=== PATIENT | female | born 1955 | race Hispanic/Latino ===

== ENCOUNTER 2021-12-16 13:33 | Inpatient (IN) | payer MEDICARE ==
--- NOTE | 2021-12-16 14:13 | Emergency Department Report ---
ED Fall HPI - General Chief Complaint: Extremity Injury, Lower Stated Complaint: HIP PAIN/RT/ Time Seen by Provider: 12/16/21 13:52 Source: EMS, old records reviewed (Patient summary from [facility] reviewed) Mode of arrival: Stretcher Limitations: Other - History of Present Illness Initial Comments: 66-year-old female with Lewy body dementia and hypertension presents to the hospital from [facility] assisted living for a witnessed fall. Due to patient's underlying dementia history of present illness obtained from triage nurse who spoke to EMS. EMS reports that fall was witnessed by staff. No head injury or LOC reported. Patient has had persistent right hip pain since fall. - Related Data Allergies Allergy/AdvReac Type Severity Reaction Status Date / Time Penicillins Allergy Unknown Verified 12/16/21 13:55 Sulfa (Sulfonamide Allergy Unknown Verified 12/16/21 13:55 Antibiotics) ED Review of Systems ROS: Stated complaint: HIP PAIN/RT/ Other details as noted in HPI Comment: Unobtainable due to pts medical conditions (Dementia) ED Past Medical Hx - Past Medical History Previous Medical History?: Yes Hx Hypertension: Yes Hx Dementia: Yes (Lewy body) - Surgical History Past Surgical History?: Yes Hx Cholecystectomy: Yes Hx Breast Surgery: Yes Additional Surgical History: Hysterectomy, tonsillectomy ED Physical Exam - General Limitations: Altered Mental Status - Other Other exam information: General: No acute distress Head: Atraumatic Eyes: normal appearance ENT: Moist mucous membranes Neck: Normal appearance, no midline tenderness Chest: Clear to auscultation bilaterally CV: Regular rate and rhythm Abdomen: Soft, normal bowel sounds, nontender, nondistended, no rebound or guarding Back: Normal inspection Extremity: Right hip pain, externally rotated, 2+ DP pulse Neuro: Alert oriented x0, unable to answer direct questions, speaking but not making sense. Equal handgrip, 5/5 left foot dorsiflexion Psych: Appropriate behavior Skin: No rash ED Course Vital Signs 12/16/21 13:40 Temperature 98.1 F Pulse Rate 64 Respiratory 16 Rate Blood Pressure 140/90 [Left] O2 Sat by Pulse 96 Oximetry ED Medical Decision Making - Lab Data Result diagrams: 12/16/21 14:50 12/16/21 14:50 Lab Results 12/16/21 12/16/21 12/16/21 Range/Units 14:50 14:50 14:50 WBC 14.4 H (4.5-11.0) K/mm3 RBC 4.31 (3.65-5.03) M/mm3 Hgb 13.1 (10.1-14.3) gm/dl Hct 40.3 (30.3-42.9) % MCV 94 (79-97) fl MCH 31 (28-32) pg MCHC 33 (30-34) % RDW 13.9 (13.2-15.2) % Plt Count 187 (140-440) K/mm3 Lymph % (Auto) 4.4 L (13.4-35.0) % [place] % (Auto) 8.8 H (0.0-7.3) % Eos % (Auto) 0.1 (0.0-4.3) % Baso % (Auto) 0.2 (0.0-1.8) % Lymph # (Auto) 0.6 L (1.2-5.4) K/mm3 [place] # (Auto) 1.3 H (0.0-0.8) K/mm3 Eos # (Auto) 0.0 (0.0-0.4) K/mm3 Baso # (Auto) 0.0 (0.0-0.1) K/mm3 Seg Neutrophils % 86.5 H (40.0-70.0) % Seg Neutrophils # 12.4 H (1.8-7.7) K/mm3 PT 15.0 H (12.2-14.9) Sec. INR 1.06 (0.87-1.13) APTT 27.8 (24.2-36.6) Sec. Sodium 142 (137-145) mmol/L Potassium 4.2 (3.6-5.0) mmol/L Chloride 105.3 (98-107) mmol/L Carbon Dioxide 23 (22-30) mmol/L Anion Gap 18 mmol/L BUN 23 H (7-17) mg/dL Creatinine 0.8 (0.6-1.2) mg/dL Estimated GFR > 60 ml/min BUN/Creatinine Ratio 29 % Glucose 144 H (65-100) mg/dL Calcium 9.9 (8.4-10.2) mg/dL Blood Type Antibody Screen 12/16/21 Range/Units 15:00 WBC (4.5-11.0) K/mm3 RBC (3.65-5.03) M/mm3 Hgb (10.1-14.3) gm/dl Hct (30.3-42.9) % MCV (79-97) fl MCH (28-32) pg MCHC (30-34) % RDW (13.2-15.2) % Plt Count (140-440) K/mm3 Lymph % (Auto) (13.4-35.0) % [place] % (Auto) (0.0-7.3) % Eos % (Auto) (0.0-4.3) % Baso % (Auto) (0.0-1.8) % Lymph # (Auto) (1.2-5.4) K/mm3 [place] # (Auto) (0.0-0.8) K/mm3 Eos # (Auto) (0.0-0.4) K/mm3 Baso # (Auto) (0.0-0.1) K/mm3 Seg Neutrophils % (40.0-70.0) % Seg Neutrophils # (1.8-7.7) K/mm3 PT (12.2-14.9) Sec. INR (0.87-1.13) APTT (24.2-36.6) Sec. Sodium (137-145) mmol/L Potassium (3.6-5.0) mmol/L Chloride (98-107) mmol/L Carbon Dioxide (22-30) mmol/L Anion Gap mmol/L BUN (7-17) mg/dL Creatinine (0.6-1.2) mg/dL Estimated GFR ml/min BUN/Creatinine Ratio % Glucose (65-100) mg/dL Calcium (8.4-10.2) mg/dL Blood Type O POSITIVE Antibody Screen Negative - Radiology Data Radiology results: report reviewed RIGHT HIP 2 VIEW(S) INDICATION / CLINICAL INFORMATION: fall, right hip pain, external rotation COMPARISON: None available. FINDINGS: BONES / JOINT(S): There is an acute slightly comminuted intertrochanteric fracture of the right proximal femur with moderate displacement. No significant arthritis. SOFT TISSUES: No significant abnormality. ADDITIONAL FINDINGS: None. - Medical Decision Making 66-year-old with a right hip fracture status post fall. Case discussed with orthopedics and hospitalist to admit for surgical repair Critical Care Time: No Critical care attestation.: If time is entered above; I have spent that time in minutes in the direct care of this critically ill patient, excluding procedure time. ED Disposition Clinical Impression: Closed right hip fracture, Fall, Dementia Disposition: ADMITTED INPATIENT Is pt being admited?: Yes Condition: Stable Time of Disposition: 15:00
--- NOTE | 2021-12-16 14:49 | XRay Report ---
RIGHT HIP 2 VIEW(S) INDICATION / CLINICAL INFORMATION: fall, right hip pain, external rotation COMPARISON: None available. FINDINGS: BONES / JOINT(S): There is an acute slightly comminuted intertrochanteric fracture of the right proxi mal femur with moderate displacement. No significant arthritis. SOFT TISSUES: No significant abnormality. ADDITIONAL FINDINGS: None. Signer Name: Aravind Montez DO Signed: 12/16/2021 2:45 PM Workstation Name: [id number]
--- NOTE | 2021-12-16 15:09 | Consultation ---
History of Present Illness - HPI Consult date: 12/16/21 Consult reason: joint pain, fracture History of present illness: 66-year-old female with Lewy body dementia and hypertension presents to the hospital from [facility] for a witnessed fall. Due to patient's underlying dementia history of present illness obtained from triage nurse who spoke to EMS. EMS reports that fall was witnessed by staff. No head injury or LOC reported. Patient has had persistent right hip pain since fall. Seen in the ED where plain x-rays reveal a displaced right intertrochanteric hip fracture, patient reportedly ambulatory prior to fall... Medications and Allergies Allergies Allergy/AdvReac Type Severity Reaction Status Date / Time Penicillins Allergy Unknown Verified 12/16/21 13:55 Sulfa (Sulfonamide Allergy Unknown Verified 12/16/21 13:55 Antibiotics) Physical Examination - Physical exam Narrative exam: Right LE - + shortening with external rotation, moderate swelling proximal thigh, tender on palpation, painful PROM noted, distal n/v intact... Eyes: PERRL ENT: Positive: clear oral mucosa Respiratory effort: normal Respiratory: bilateral: CTA Rhythm: regular Heart Sounds: Positive: S1 & S2 General gastrointestinal: Positive: soft, non-tender, non-distended, normal bowel sounds Integumentary: clear, warm, dry Neurologic: Positive: CNII-XII intact, moves all extremities, gait normal. Negative: focal deficits Assessment and Plan Right intertrochanteric hip fracture in ambulatory demented patient recommend IM nailing right hip....
[2021-12-16 15:23] LABS: Basophils % (Auto) 0.2 % (0.0-1.8); Eosinophils % (Auto) 0.1 % (0.0-4.3); Hematocrit 40.3 % (30.3-42.9); Hemoglobin 13.1 gm/dl (10.1-14.3); Lymphocytes # (Auto) 0.6 K/mm3 (1.2-5.4); Lymphocytes % (Auto) 4.4 % (13.4-35.0); Mean Corpuscular HGB Conc 33 % (30-34); Mean Corpuscular Volume 94 fl (79-97); Monocytes # (Auto) 1.3 K/mm3 (0.0-0.8); Monocytes % (Auto) 8.8 % (0.0-7.3); Platelet Count 187 K/mm3 (140-440); Red Blood Count 4.31 M/mm3 (3.65-5.03); Red Cell Distribution Width 13.9 % (13.2-15.2)
[2021-12-16 15:35] LABS: BUN/Creatinine Ratio 29; Blood Urea Nitrogen 23 mg/dL (7-17); Calcium 9.9 mg/dL (8.4-10.2); Hemolysis Index 19
[2021-12-16 15:37] LABS: INR 1.06 (0.87-1.13); Partial Thromboplastin Time 27.8 Sec. (24.2-36.6)
[2021-12-16] MEDS ORDERED: ACETAMINOPHEN 325 MG TAB PO PRN (18:03)
[2021-12-16] MEDS ORDERED: METOCLOPRAMIDE 10 MG/2 ML INJ IV PRN (18:03)
[2021-12-16] MEDS ORDERED: MORPHINE 2 MG/1 ML INJ IV PRN (18:03)
[2021-12-16] MEDS ORDERED: ONDANSETRON 4 MG/2 ML INJ IV PRN (18:03)
--- NOTE | 2021-12-16 18:03 | History and Physical Report ---
History of Present Illness Date of examination: 12/16/21 Date of admission: December 21, 2021 Chief complaint: Right hip pain-s/p fall History of present illness: 66-year-old female with Lewy body dementia and hypertension presents to the hospital from [facility] for a witnessed fall. Patient has right hip pain and decreased range of motion. Due to patient's underlying dementia history of present illness obtained from triage nurse who spoke to EMS. EMS reports that fall was witnessed by staff. No head injury or LOC reported. Patient has had persistent right hip pain since fall. ED course: Patient has right hip comminuted intertrochanteric fracture for which she will be getting surgery tomorrow morning - Past Medical History --Previous Medical History?: Yes --Hypertension: Yes --Dementia: Yes (Lewy body) - Surgical History --Past Surgical History?: Yes --Cholecystectomy: Yes --Breast Surgery: Yes --Additional Surgical History: Hysterectomy, tonsillectomy - Family history --unknown -social history --does not smoke, lives in [facility] Review of Systems ROS: Stated complaint: HIP PAIN/RT/ Other details as noted in HPI Comment: Unobtainable due to pts medical conditions (Dementia) Medications and Allergies Allergies Allergy/AdvReac Type Severity Reaction Status Date / Time Penicillins Allergy Unknown Verified 12/16/21 13:55 Sulfa (Sulfonamide Allergy Unknown Verified 12/16/21 13:55 Antibiotics) Exam - Constitutional Vitals: Temp Pulse Resp BP Pulse Ox 98.1 F 64 16 140/90 96 12/16/21 13:40 12/16/21 13:40 12/16/21 13:40 12/16/21 13:40 12/16/21 13:40 General appearance: Present: no acute distress, well-nourished - EENT Eyes: Present: PERRL ENT: hearing intact, clear oral mucosa - Neck Neck: Present: supple, normal ROM - Respiratory Respiratory effort: normal Respiratory: bilateral: CTA - Cardiovascular Heart rate: 78 Rhythm: regular Heart Sounds: Present: S1 & S2. Absent: rub, click - Extremities Extremities: no ischemia, pulses intact, pulses symmetrical, No edema, abnormal (Decreased range of motion of the right hip) Extremity abnormal: other (Same as above) Peripheral Pulses: within normal limits - Abdominal General gastrointestinal: Present: soft, non-tender, non-distended, normal bowel sounds Female genitourinary: Present: normal - Integumentary Integumentary: Present: clear, warm, dry - Musculoskeletal Musculoskeletal: generalized weakness - Psychiatric Psychiatric: other (Severe dementia) - Neurologic Neurologic: CNII-XII intact, moves all extremities, other (Severe dementia) - Allied Health Allied health notes reviewed: nursing, case management Results - Labs CBC & Chem 7: 12/16/21 14:50 12/16/21 14:50 Labs: Laboratory Last Values WBC 14.4 K/mm3 (4.5-11.0) H 12/16/21 14:50 RBC 4.31 M/mm3 (3.65-5.03) 12/16/21 14:50 Hgb 13.1 gm/dl (10.1-14.3) 12/16/21 14:50 Hct 40.3 % (30.3-42.9) 12/16/21 14:50 MCV 94 fl (79-97) 12/16/21 14:50 MCH 31 pg (28-32) 12/16/21 14:50 MCHC 33 % (30-34) 12/16/21 14:50 RDW 13.9 % (13.2-15.2) 12/16/21 14:50 Plt Count 187 K/mm3 (140-440) 12/16/21 14:50 Lymph % (Auto) 4.4 % (13.4-35.0) L 12/16/21 14:50 [place] % (Auto) 8.8 % (0.0-7.3) H 12/16/21 14:50 Eos % (Auto) 0.1 % (0.0-4.3) 12/16/21 14:50 Baso % (Auto) 0.2 % (0.0-1.8) 12/16/21 14:50 Lymph # (Auto) 0.6 K/mm3 (1.2-5.4) L 12/16/21 14:50 [place] # (Auto) 1.3 K/mm3 (0.0-0.8) H 12/16/21 14:50 Eos # (Auto) 0.0 K/mm3 (0.0-0.4) 12/16/21 14:50 Baso # (Auto) 0.0 K/mm3 (0.0-0.1) 12/16/21 14:50 Seg Neutrophils % 86.5 % (40.0-70.0) H 12/16/21 14:50 Seg Neutrophils # 12.4 K/mm3 (1.8-7.7) H 12/16/21 14:50 PT 15.0 Sec. (12.2-14.9) H 12/16/21 14:50 INR 1.06 (0.87-1.13) 12/16/21 14:50 APTT 27.8 Sec. (24.2-36.6) 12/16/21 14:50 Sodium 142 mmol/L (137-145) 12/16/21 14:50 Potassium 4.2 mmol/L (3.6-5.0) 12/16/21 14:50 Chloride 105.3 mmol/L (98-107) 12/16/21 14:50 Carbon Dioxide 23 mmol/L (22-30) 12/16/21 14:50 Anion Gap 18 mmol/L 12/16/21 14:50 BUN 23 mg/dL (7-17) H 12/16/21 14:50 Creatinine 0.8 mg/dL (0.6-1.2) 12/16/21 14:50 Estimated GFR > 60 ml/min 12/16/21 14:50 BUN/Creatinine Ratio 29 % 12/16/21 14:50 Glucose 144 mg/dL (65-100) H 12/16/21 14:50 Calcium 9.9 mg/dL (8.4-10.2) 12/16/21 14:50 Blood Type O POSITIVE 12/16/21 15:00 Antibody Screen Negative 12/16/21 15:00 Short CBC 12/16/21 Range/Units 14:50 WBC 14.4 H (4.5-11.0) K/mm3 Hgb 13.1 (10.1-14.3) gm/dl Hct 40.3 (30.3-42.9) % Plt Count 187 (140-440) K/mm3 BMP 12/16/21 14:50 Sodium 142 Potassium 4.2 Chloride 105.3 Carbon Dioxide 23 BUN 23 H Creatinine 0.8 Glucose 144 H Calcium 9.9 - Imaging and Cardiology Imaging and Cardiology: Hip x-ray right Acute slightly comminuted intertrochanteric fracture of the right proximal femur with moderate displacement. No significant arthritis. Assessment and Plan Advance Directives: Yes (Full code) VTE prophylaxis?: Chemical Plan of care discussed with patient/family: Yes - Patient Problems (1) Closed right hip fracture Current Visit: Yes Status: Acute Qualifiers: Encounter type: initial encounter Qualified Code(s): S72.001A - Fracture of unspecified part of neck of right femur, initial encounter for closed fracture Plan to address problem: Dr. Valle consulted Discussed with Dr. Valle Patient going for surgery tomorrow morning for ORIF (2) Dementia Current Visit: Yes Status: Chronic Qualifiers: Dementia type: Alzheimer's Dementia behavioral disturbance: without behavioral disturbance Plan to address problem: Supportive care (3) Hypertension Current Visit: Yes Status: Chronic Qualifiers: Hypertension type: primary hypertension Qualified Code(s): I10 - Essential (primary) hypertension Plan to address problem: Continue antihypertensive Patient medically cleared for surgery (4) DVT prophylaxis Current Visit: Yes Status: Acute Plan to address problem: Patient on SCDs and will need anticoagulation postop for 5 weeks (5) Advance care planning Current Visit: Yes Status: Acute Plan to address problem: Could not be done because of the patient's severe dementia and no family member being available
[2021-12-17] MEDS: SODIUM CHLORIDE 0.9% 1000 ML 1,000 ML IV SCH (05:40)
--- NOTE | 2021-12-17 11:01 | Progress Note ---
Assessment and Plan Assessment and plan: -- Closed right intertrochanteric hip fracture; Current Visit: Yes Status: Acute Status post fall. Continue fall precautions Orthopedic surgeon Dr. Valle evaluated the patient Planning IM nailing of right hip --History of fall; Current Visit: Yes Status: Acute Fall precautions, stabilization of fracture and hip IM nailing, physical therapy occupational therapy and rehabilitation -- dementia; Current Visit: Yes Status: Chronic Supportive care --Hypertension Current Visit: Yes Status: Chronic Continue antihypertensive Patient medically cleared for surgery --DVT prophylaxis Current Visit: Yes Status: Acute Patient on SCDs and will need anticoagulation postop for 5 weeks --Advance care planning Current Visit: Yes Status: Acute Could not be done because of the patient's severe dementia and no family member being available Closely monitor the patient and adjust management as needed Follow orthopedic recommendations. Plan of care reviewed with the nurse I called patient's son who is next of kin Mr. Bill Grey at [phone], no one picked up the phone, could not leave a message as voicemail was not set up. We will try to reach the family again tomorrow I informed the nurse. History Interval history: I have seen and examined the patient at the bedside Patient's chart and medications reviewed 66-year-old female patient with history of fall and right hip injury Evaluated by orthopedic, planning IM nailing and stabilization Patient is confused and in mild distress Vital signs noted Hospitalist Physical - Constitutional Vitals: Temp Pulse Resp BP Pulse Ox 98.1 F 63 20 150/60 98 12/17/21 06:40 12/17/21 06:40 12/17/21 06:40 12/17/21 06:40 12/17/21 06:40 General appearance: Present: no acute distress, well-nourished - EENT Eyes: Present: PERRL, EOM intact - Neck Neck: Present: supple, normal ROM - Respiratory Respiratory effort: normal Respiratory: bilateral: diminished, negative: rales, rhonchi, wheezing - Cardiovascular Rhythm: regular Heart Sounds: Present: S1 & S2 - Extremities Extremities: no ischemia, No edema - Abdominal General gastrointestinal: soft, non-tender, non-distended, normal bowel sounds - Integumentary Integumentary: Present: clear, warm - Psychiatric Psychiatric: other (Confused and delirious) - Neurologic Neurologic: moves all extremities Results - Labs CBC & Chem 7: 12/16/21 14:50 12/16/21 14:50 Labs: Laboratory Last Values WBC 14.4 K/mm3 (4.5-11.0) H 12/16/21 14:50 RBC 4.31 M/mm3 (3.65-5.03) 12/16/21 14:50 Hgb 13.1 gm/dl (10.1-14.3) 12/16/21 14:50 Hct 40.3 % (30.3-42.9) 12/16/21 14:50 MCV 94 fl (79-97) 12/16/21 14:50 MCH 31 pg (28-32) 12/16/21 14:50 MCHC 33 % (30-34) 12/16/21 14:50 RDW 13.9 % (13.2-15.2) 12/16/21 14:50 Plt Count 187 K/mm3 (140-440) 12/16/21 14:50 Lymph % (Auto) 4.4 % (13.4-35.0) L 12/16/21 14:50 [place] % (Auto) 8.8 % (0.0-7.3) H 12/16/21 14:50 Eos % (Auto) 0.1 % (0.0-4.3) 12/16/21 14:50 Baso % (Auto) 0.2 % (0.0-1.8) 12/16/21 14:50 Lymph # (Auto) 0.6 K/mm3 (1.2-5.4) L 12/16/21 14:50 [place] # (Auto) 1.3 K/mm3 (0.0-0.8) H 12/16/21 14:50 Eos # (Auto) 0.0 K/mm3 (0.0-0.4) 12/16/21 14:50 Baso # (Auto) 0.0 K/mm3 (0.0-0.1) 12/16/21 14:50 Seg Neutrophils % 86.5 % (40.0-70.0) H 12/16/21 14:50 Seg Neutrophils # 12.4 K/mm3 (1.8-7.7) H 12/16/21 14:50 PT 15.0 Sec. (12.2-14.9) H 12/16/21 14:50 INR 1.06 (0.87-1.13) 12/16/21 14:50 APTT 27.8 Sec. (24.2-36.6) 12/16/21 14:50 Sodium 142 mmol/L (137-145) 12/16/21 14:50 Potassium 4.2 mmol/L (3.6-5.0) 12/16/21 14:50 Chloride 105.3 mmol/L (98-107) 12/16/21 14:50 Carbon Dioxide 23 mmol/L (22-30) 12/16/21 14:50 Anion Gap 18 mmol/L 12/16/21 14:50 BUN 23 mg/dL (7-17) H 12/16/21 14:50 Creatinine 0.8 mg/dL (0.6-1.2) 12/16/21 14:50 Estimated GFR > 60 ml/min 12/16/21 14:50 BUN/Creatinine Ratio 29 % 12/16/21 14:50 Glucose 144 mg/dL (65-100) H 12/16/21 14:50 Calcium 9.9 mg/dL (8.4-10.2) 12/16/21 14:50 Blood Type O POSITIVE 12/16/21 15:00 Antibody Screen Negative 12/16/21 15:00 Tripathi/IV: Voiding Method Incontinent Active Medications - Current Medications Current Medications: Generic Name Dose Route Start Last Admin Trade Name Freq PRN Reason Stop Dose Admin Acetaminophen 650 mg 12/16/21 18:03 Acetaminophen 325 Mg Tab PO Q4H PRN Pain MILD(1-3)/Fever >100.5/RODRIGUEZ Sodium Chloride 1,000 mls @ 100 mls/hr 12/16/21 18:15 12/17/21 05:40 Nacl 0.9% 1000 Ml IV 100 mls/hr DIRECT ALAN Administration Metoclopramide HCl 10 mg 12/16/21 18:03 Metoclopramide 10 Mg/2 Ml Inj IV Q6H PRN Nausea And Vomiting Morphine Sulfate 2 mg 12/16/21 18:03 Morphine 2 Mg/1 Ml Inj IV Q4H PRN Pain, Moderate (4-6) Ondansetron HCl 4 mg 12/16/21 18:03 Ondansetron 4 Mg/2 Ml Inj IV Q3H PRN Nausea And Vomiting Sodium Chloride 10 ml 12/16/21 22:00 12/17/21 10:07 Sodium Chloride 0.9% 10 Ml Flush Syringe IV 10 ml BID ALAN Administration Sodium Chloride 10 ml 12/16/21 18:03 Sodium Chloride 0.9% 10 Ml Flush Syringe IV PRN PRN LINE FLUSH
--- NOTE | 2021-12-17 15:32 | Event Note ---
Date: 12/17/21 I called patient's son who is next of kin Mr. Bill Grey at [phone], no one picked up the phone, could not leave a voicemail as voicemail was not set up. We will try to reach the family again tomorrow. Nurse also reports that no family contacted her or the hospital .
[2021-12-18 04:59] LABS: Basophils % (Auto) 0.5 % (0.0-1.8); Eosinophils % (Auto) 0.1 % (0.0-4.3); Hematocrit 39.1 % (30.3-42.9); Hemoglobin 12.9 gm/dl (10.1-14.3); Mean Corpuscular HGB Conc 33 % (30-34); Mean Corpuscular Volume 93 fl (79-97); Monocytes # (Auto) 1.3 K/mm3 (0.0-0.8); Monocytes % (Auto) 15.3 % (0.0-7.3); Platelet Count 178 K/mm3 (140-440); Red Blood Count 4.21 M/mm3 (3.65-5.03); Red Cell Distribution Width 14.1 % (13.2-15.2)
[2021-12-18 05:21] LABS: Blood Urea Nitrogen 16 mg/dL (7-17); Calcium 9.7 mg/dL (8.4-10.2); Hemolysis Index 2
[2021-12-18 05:27] LABS: BUN/Creatinine Ratio 27
--- NOTE | 2021-12-18 10:44 | Electrocardiograph Report ---
[facility] Test Date: 2021-12-17 Test Time: 08:14:49 Pat Name: ASAEL BHATIA Department: Room: A371 1 Gender: F Can Worker: TINA : 1955 Requested By: ERYN GOMEZ Order Number: [id number] Reading MD: Marcy Shetty Measurements Intervals [place] Rate: 63 P: 33 VT: 45 QRS: 64 QRSD: 87 T: 60 QT: 423 QTc: 432 Interpretive Statements Sinus rhythm No previous ECG available for comparison Electronically Signed On 12-18-2021 10:43:40 EDT by Marcy Shetty
--- NOTE | 2021-12-18 11:25 | Progress Note ---
Assessment and Plan Assessment and plan: -- Closed right intertrochanteric hip fracture; Current Visit: Yes Status: Acute Status post fall. Continue fall precautions Orthopedic surgeon Dr. Valle evaluated the patient Planning IM nailing of right hip Management per orthopedics surgeon --History of fall; Current Visit: Yes Status: Acute Fall precautions, stabilization of fracture and hip IM nailing, physical therapy occupational therapy and rehabilitation -- dementia; Current Visit: Yes Status: Chronic Supportive care --Hypertension Current Visit: Yes Status: Chronic Continue antihypertensive Patient medically cleared for surgery --DVT prophylaxis Current Visit: Yes Status: Acute Patient on SCDs and will need anticoagulation postop for 5 weeks --Advance care planning Current Visit: Yes Status: Acute Could not be done because of the patient's severe dementia and no family member being available Closely monitor the patient and adjust management as needed Follow orthopedic recommendations. Plan of care reviewed with the nurse I called patient's son who is next of kin Mr. Bill Grey at [phone], no one picked up the phone, could not leave a message as voicemail was not set up. We will try to reach the family again tomorrow I informed the nurse. 12/18; patient feels slightly better still complains of some pain Orthopedic surgeon evaluated the patient, considering IM nailing History Interval history: I have seen and examined the patient at the bedside Patient's chart and medications reviewed Patient feels slightly better Confused at times Vital signs noted Hospitalist Physical - Constitutional Vitals: Temp Pulse Resp BP Pulse Ox 98.1 F 62 16 137/50 98 12/18/21 04:55 12/18/21 04:55 12/18/21 04:55 12/18/21 04:55 12/18/21 07:45 General appearance: Present: no acute distress, well-nourished - EENT Eyes: Present: PERRL, EOM intact - Neck Neck: Present: supple, normal ROM - Respiratory Respiratory effort: normal Respiratory: bilateral: diminished, negative: rales, rhonchi, wheezing - Cardiovascular Rhythm: regular Heart Sounds: Present: S1 & S2 - Extremities Extremities: no ischemia, No edema - Abdominal General gastrointestinal: soft, non-tender, non-distended, normal bowel sounds - Integumentary Integumentary: Present: clear, warm - Psychiatric Psychiatric: appropriate mood/affect, cooperative - Neurologic Neurologic: CNII-XII intact, moves all extremities Results - Labs CBC & Chem 7: 12/18/21 04:10 12/18/21 04:10 Labs: Laboratory Last Values WBC 8.6 K/mm3 (4.5-11.0) 12/18/21 04:10 RBC 4.21 M/mm3 (3.65-5.03) 12/18/21 04:10 Hgb 12.9 gm/dl (10.1-14.3) 12/18/21 04:10 Hct 39.1 % (30.3-42.9) 12/18/21 04:10 MCV 93 fl (79-97) 12/18/21 04:10 MCH 31 pg (28-32) 12/18/21 04:10 MCHC 33 % (30-34) 12/18/21 04:10 RDW 14.1 % (13.2-15.2) 12/18/21 04:10 Plt Count 178 K/mm3 (140-440) 12/18/21 04:10 Lymph % (Auto) 12.0 % (13.4-35.0) L 12/18/21 04:10 [place] % (Auto) 15.3 % (0.0-7.3) H 12/18/21 04:10 Eos % (Auto) 0.1 % (0.0-4.3) 12/18/21 04:10 Baso % (Auto) 0.5 % (0.0-1.8) 12/18/21 04:10 Lymph # (Auto) 1.0 K/mm3 (1.2-5.4) L 12/18/21 04:10 [place] # (Auto) 1.3 K/mm3 (0.0-0.8) H 12/18/21 04:10 Eos # (Auto) 0.0 K/mm3 (0.0-0.4) 12/18/21 04:10 Baso # (Auto) 0.0 K/mm3 (0.0-0.1) 12/18/21 04:10 Seg Neutrophils % 72.1 % (40.0-70.0) H 12/18/21 04:10 Seg Neutrophils # 6.2 K/mm3 (1.8-7.7) 12/18/21 04:10 PT 15.0 Sec. (12.2-14.9) H 12/16/21 14:50 INR 1.06 (0.87-1.13) 12/16/21 14:50 APTT 27.8 Sec. (24.2-36.6) 12/16/21 14:50 Sodium 143 mmol/L (137-145) 12/18/21 04:10 Potassium 4.0 mmol/L (3.6-5.0) 12/18/21 04:10 Chloride 105.5 mmol/L (98-107) 12/18/21 04:10 Carbon Dioxide 23 mmol/L (22-30) 12/18/21 04:10 Anion Gap 19 mmol/L 12/18/21 04:10 BUN 16 mg/dL (7-17) 12/18/21 04:10 Creatinine 0.6 mg/dL (0.6-1.2) 12/18/21 04:10 Estimated GFR > 60 ml/min 12/18/21 04:10 BUN/Creatinine Ratio 27 % 12/18/21 04:10 Glucose 137 mg/dL (65-100) H 12/18/21 04:10 Calcium 9.7 mg/dL (8.4-10.2) 12/18/21 04:10 Blood Type O POSITIVE 12/16/21 15:00 Antibody Screen Negative 12/16/21 15:00 Tripathi/IV: Voiding Method External Female Catheter Active Medications - Current Medications Current Medications: Generic Name Dose Route Start Last Admin Trade Name Freq PRN Reason Stop Dose Admin Acetaminophen 650 mg 12/16/21 18:03 Acetaminophen 325 Mg Tab PO Q4H PRN Pain MILD(1-3)/Fever >100.5/RODRIGUEZ Sodium Chloride 1,000 mls @ 100 mls/hr 12/16/21 18:15 12/17/21 05:40 Nacl 0.9% 1000 Ml IV 100 mls/hr DIRECT ALAN Administration Metoclopramide HCl 10 mg 12/16/21 18:03 Metoclopramide 10 Mg/2 Ml Inj IV Q6H PRN Nausea And Vomiting Morphine Sulfate 2 mg 12/16/21 18:03 12/17/21 13:28 Morphine 2 Mg/1 Ml Inj IV 2 mg Q4H PRN Administration Pain, Moderate (4-6) Ondansetron HCl 4 mg 12/16/21 18:03 Ondansetron 4 Mg/2 Ml Inj IV Q3H PRN Nausea And Vomiting Sodium Chloride 10 ml 12/16/21 22:00 12/18/21 10:13 Sodium Chloride 0.9% 10 Ml Flush Syringe IV 10 ml BID ALAN Administration Sodium Chloride 10 ml 12/16/21 18:03 Sodium Chloride 0.9% 10 Ml Flush Syringe IV PRN PRN LINE FLUSH Nutrition/Malnutrition Assess - Dietary Evaluation Nutrition/Malnutrition Findings: Nutrition Notes Start: 12/17/21 11:15 Freq: Status: Active Protocol: Document 12/17/21 11:15 GONZALO (Rec: 12/17/21 11:37 GONZALO [id number]) Nutrition Notes 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 Current Diet Regular Diet (since L 12/17). Labs/Tests 12/17: BUN 23, Glu 144. Pertinent Medications 12/17: Nutritionally unremarkable. 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 Weight Status Overweight Subjective/Other Information RD consult for risk of malnutrition assessment. No reports available on Pt's PO intake of meals at the time , will assess at F/U. Pt shows no signs of concern for risk of malnutrition at the time, according to Physical Assessment History notes. Pt is on Room Air, O2 saturation @ 95%, according to Physical Assessment History notes. Pt presents a R-Hip comminuted intertrochanteric fracture, surgery planned for 12/18, according to History & Physical notes. Pt lives in assisted personal- correction, according to History & Physical notes. Percent of energy/protein needs met: Prescribed Regular Diet provides for energy/protein needs (2,289 Kcal/89 g) during LOS. Burn Absent Trauma Absent GI Symptoms None Food Allergy No Skin Integrity/Comment Assessment WNL. Minimum of two criteria No #1 Nutrition Diagnosis No nutrition diagnosis at this time Comments: Will assess Pt's PO intake of meals at F/U. Is patient on ventilator? No Is Patient Ambulatory and/or Out of Bed No REE-([place]-confined [facility] bed) [phone] Calculation Used for Recommendations Ruth Roberson Additional Notes Protein: 1-1.2 g/Kg ABW; 68-82 g/day. Fluids: 1 ml/Kcal, or as per MD. Nutrition Intervention Change Diet Order: Continue Regular Diet. Follow-Up By: 12/20/21 Additional Comments Continue monitoring food tolerance, %PO intake of meals , and BM.
[2021-12-18] MEDS: SODIUM CHLORIDE 0.9% 1000 ML 1,000 ML IV SCH (16:16)
[2021-12-18] MEDS ORDERED: ENOXAPARIN 40 MG/0.4 ML INJ SUB-Q SCH (22:00)
[2021-12-19] MEDS: SODIUM CHLORIDE 0.9% 1000 ML 1,000 ML IV SCH (01:19)
--- NOTE | 2021-12-19 08:06 | Progress Note ---
Assessment and Plan Assessment and plan: -- Closed right intertrochanteric hip fracture; Current Visit: Yes Status: Acute Status post fall. Continue fall precautions Orthopedic surgeon Dr. Valle evaluated the patient Planning IM nailing of right hip today 12/19/2021 Management per orthopedics surgeon Postop care, PT OT, pain management, discharge planning --History of fall; Current Visit: Yes Status: Acute Fall precautions, stabilization of fracture and hip IM nailing, physical therapy occupational therapy and rehabilitation -- dementia; Current Visit: Yes Status: Chronic Supportive care --Hypertension Current Visit: Yes Status: Chronic Continue antihypertensive Patient medically cleared for surgery --DVT prophylaxis Current Visit: Yes Status: Acute Patient on SCDs and will need anticoagulation postop for 5 weeks --Advance care planning Current Visit: Yes Status: Acute Could not be done because of the patient's severe dementia and no family member being available Closely monitor the patient and adjust management as needed Follow orthopedic recommendations. Plan of care reviewed with the nurse I called patient's son who is next of kin Mr. Bill Grey at [phone], no one picked up the phone, could not leave a message as voicemail was not set up. We will try to reach the family again tomorrow I informed the nurse. Brief history; 66-year-old female patient with severe dementia had a fall and sustained right hip fracture, evaluated by orthopedic surgeon, unable to reach family, Finally administrative consent was used, patient underwent surgical procedure IM nailing. 12/18; patient feels slightly better still complains of some pain Orthopedic surgeon evaluated the patient, considering IM nailing 12/19; could not contact family after multiple attempts b y multiple caregivers Risk-management advised to go ahead with the procedure with 2 physicians signature Orthopedic surgeon and I signed the consent and patient went for surgical procedure Disposition; discharge when patient is stable History Interval history: I have seen and examined the patient at the bedside Patient's chart and medications reviewed Patient with hip fracture, evaluated by orthopedic surgeon Planning IM nailing procedure, family could not be reached Patient is confused, has dementia Vital signs reviewed Hospitalist Physical - Constitutional Vitals: Temp Pulse Resp BP Pulse Ox 98.5 F 71 16 130/63 97 12/18/21 21:14 12/18/21 21:14 12/18/21 21:14 12/18/21 21:14 12/19/21 07:47 General appearance: Present: mild distress, well-nourished, other - EENT Eyes: Present: PERRL (Confused and agitated), EOM intact - Neck Neck: Present: supple, normal ROM - Respiratory Respiratory effort: normal Respiratory: bilateral: diminished, negative: rales, rhonchi, wheezing - Cardiovascular Rhythm: regular Heart Sounds: Present: S1 & S2 - Extremities Extremities: no ischemia, No edema, abnormal (Right hip fracture) - Abdominal General gastrointestinal: soft, non-tender, non-distended, normal bowel sounds - Integumentary Integumentary: Present: clear, warm - Psychiatric Psychiatric: appropriate mood/affect, cooperative - Neurologic Neurologic: no focal deficits, moves all extremities Results - Labs CBC & Chem 7: 12/18/21 04:10 12/18/21 04:10 Labs: Laboratory Last Values WBC 8.6 K/mm3 (4.5-11.0) 12/18/21 04:10 RBC 4.21 M/mm3 (3.65-5.03) 12/18/21 04:10 Hgb 12.9 gm/dl (10.1-14.3) 12/18/21 04:10 Hct 39.1 % (30.3-42.9) 12/18/21 04:10 MCV 93 fl (79-97) 12/18/21 04:10 MCH 31 pg (28-32) 12/18/21 04:10 MCHC 33 % (30-34) 12/18/21 04:10 RDW 14.1 % (13.2-15.2) 12/18/21 04:10 Plt Count 178 K/mm3 (140-440) 12/18/21 04:10 Lymph % (Auto) 12.0 % (13.4-35.0) L 12/18/21 04:10 [place] % (Auto) 15.3 % (0.0-7.3) H 12/18/21 04:10 Eos % (Auto) 0.1 % (0.0-4.3) 12/18/21 04:10 Baso % (Auto) 0.5 % (0.0-1.8) 12/18/21 04:10 Lymph # (Auto) 1.0 K/mm3 (1.2-5.4) L 12/18/21 04:10 [place] # (Auto) 1.3 K/mm3 (0.0-0.8) H 12/18/21 04:10 Eos # (Auto) 0.0 K/mm3 (0.0-0.4) 12/18/21 04:10 Baso # (Auto) 0.0 K/mm3 (0.0-0.1) 12/18/21 04:10 Seg Neutrophils % 72.1 % (40.0-70.0) H 12/18/21 04:10 Seg Neutrophils # 6.2 K/mm3 (1.8-7.7) 12/18/21 04:10 PT 15.0 Sec. (12.2-14.9) H 12/16/21 14:50 INR 1.06 (0.87-1.13) 12/16/21 14:50 APTT 27.8 Sec. (24.2-36.6) 12/16/21 14:50 Sodium 143 mmol/L (137-145) 12/18/21 04:10 Potassium 4.0 mmol/L (3.6-5.0) 12/18/21 04:10 Chloride 105.5 mmol/L (98-107) 12/18/21 04:10 Carbon Dioxide 23 mmol/L (22-30) 12/18/21 04:10 Anion Gap 19 mmol/L 12/18/21 04:10 BUN 16 mg/dL (7-17) 12/18/21 04:10 Creatinine 0.6 mg/dL (0.6-1.2) 12/18/21 04:10 Estimated GFR > 60 ml/min 12/18/21 04:10 BUN/Creatinine Ratio 27 % 12/18/21 04:10 Glucose 137 mg/dL (65-100) H 12/18/21 04:10 POC Glucose 145 mg/dL (70-105) H 12/18/21 21:15 Calcium 9.7 mg/dL (8.4-10.2) 12/18/21 04:10 Blood Type O POSITIVE 12/16/21 15:00 Antibody Screen Negative 12/16/21 15:00 Tripathi/IV: Voiding Method Incontinent Active Medications - Current Medications Current Medications: Generic Name Dose Route Start Last Admin Trade Name Freq PRN Reason Stop Dose Admin Acetaminophen 650 mg 12/16/21 18:03 Acetaminophen 325 Mg Tab PO Q4H PRN Pain MILD(1-3)/Fever >100.5/RODRIGUEZ Enoxaparin Sodium 40 mg 12/18/21 22:00 12/18/21 21:24 Enoxaparin 40 Mg/0.4 Ml Inj SUB-Q 40 mg QDAY@2200 ALAN Administration Protocol Sodium Chloride 1,000 mls @ 100 mls/hr 12/16/21 18:15 12/19/21 01:19 Nacl 0.9% 1000 Ml IV 100 mls/hr DIRECT ALAN Administration Metoclopramide HCl 10 mg 12/16/21 18:03 Metoclopramide 10 Mg/2 Ml Inj IV Q6H PRN Nausea And Vomiting Morphine Sulfate 2 mg 12/16/21 18:03 12/17/21 13:28 Morphine 2 Mg/1 Ml Inj IV 2 mg Q4H PRN Administration Pain, Moderate (4-6) Ondansetron HCl 4 mg 12/16/21 18:03 Ondansetron 4 Mg/2 Ml Inj IV Q3H PRN Nausea And Vomiting Sodium Chloride 10 ml 12/16/21 22:00 12/18/21 21:24 Sodium Chloride 0.9% 10 Ml Flush Syringe IV 10 ml BID ALAN Administration Sodium Chloride 10 ml 12/16/21 18:03 Sodium Chloride 0.9% 10 Ml Flush Syringe IV PRN PRN LINE FLUSH Nutrition/Malnutrition Assess - Dietary Evaluation Nutrition/Malnutrition Findings: Nutrition Notes Start: 12/17/21 11:15 Freq: Status: Active Protocol: Document 12/17/21 11:15 GONZALO (Rec: 12/17/21 11:37 GONZALO [id number]) Nutrition Notes 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 Current Diet Regular Diet (since L 12/17). Labs/Tests 12/17: BUN 23, Glu 144. Pertinent Medications 12/17: Nutritionally unremarkable. 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 No reports available on Pt's PO intake of meals at the time , will assess at F/U. Pt shows no signs of concern for risk of malnutrition at the time, according to Physical Assessment History notes. Pt is on Room Air, O2 saturation @ 95%, according to Physical Assessment History notes. Pt presents a R-Hip comminuted intertrochanteric fracture, surgery planned for 12/18, according to History & Physical notes. Pt lives in assisted personal- senior living, according to History & Physical notes. Percent of energy/protein needs met: Prescribed Regular Diet provides for energy/protein needs (2,289 Kcal/89 g) during LOS. Burn Absent Trauma Absent GI Symptoms None Food Allergy No Skin Integrity/Comment Assessment WNL. Minimum of two criteria No #1 Nutrition Diagnosis No nutrition diagnosis at this time Comments: Will assess Pt's PO intake of meals at F/U. Is patient on ventilator? No Is Patient Ambulatory and/or Out of Bed No REE-([place]-confined to bed) [phone] Calculation Used for Recommendations [place] Additional Notes Protein: 1-1.2 g/Kg ABW; 68-82 g/day. Fluids: 1 ml/Kcal, or as per MD. Nutrition Intervention Change Diet Order: Continue Regular Diet. Follow-Up By: 12/20/21 Additional Comments Continue monitoring food tolerance, %PO intake of meals , and BM.
--- NOTE | 2021-12-19 08:11 | Event Note ---
Date: 12/19/21 Tried calling patient's son several times yesterday and this morning to obtain surgical consent but only got his voicemail which stated " his voicemail has'nt been set up yet "... Also called assisted living facility where patient resides to see if there's any other relative who can give verbal consent for surgery but according to the person I spoke to only her son Que name listed....I my opinion, this lady needs surgical fixation tolu, because she was ambulatory prior to recent fall...
[2021-12-19] MEDS ORDERED: VANCOMYCIN PHARMACY TO DOSE IV ONE (08:59)
[2021-12-19] MEDS ORDERED: VANCOMYCIN/NS 1 GM/250 ML 1 GM/250 ML BAG IV NR (10:00)
[2021-12-19] MEDS ORDERED: KETOROLAC 30 MG/1 ML INJ ONE (12:17)
[2021-12-19] MEDS ORDERED: BUPIVACAINE/PF (0.5%) 5 MG/1 ML 10 ML VIAL INFILTRATI ONE ×2 (12:17→14:30)
[2021-12-19] MEDS ORDERED: SODIUM CHLORIDE 0.9% 50 ML ONE (12:18)
[2021-12-19] MEDS ORDERED: MORPHINE 10 MG/1 ML INJ ONE (12:18)
[2021-12-19] MEDS ORDERED: SODIUM CHLORIDE 0.9% 100 ML ONE (12:19)
[2021-12-19] MEDS ORDERED: ONDANSETRON 4 MG/2 ML INJ ONE (12:28)
[2021-12-19] MEDS ORDERED: LIDOCAINE MPF (2%) 20 MG/1 ML VIAL 5 ML ONE (12:28)
[2021-12-19] MEDS ORDERED: propofoL 200 MG/20 ML VIAL IV ONE (12:30)
[2021-12-19] MEDS ORDERED: HYDROmorphone 1 MG/1 ML INJ ONE (12:30)
[2021-12-19] MEDS ORDERED: HYDROmorphone 1 MG/1 ML INJ IV PRN (14:08)
--- NOTE | 2021-12-19 14:08 | Anesthesia Day of Surgery ---
Anesthesia Day of Surgery - Day of Surgery Patient Examined: Yes Patient H&P Reviewed: Yes Patient is NPO: Yes
--- NOTE | 2021-12-19 14:08 | Anesthesia Consultation ---
Anesthesia Consult and Med Hx Date of service: 12/19/21 - Airway Anesthetic Teeth Evaluation: Poor Mental/Hyoid Distance: Inadequate Intubation Access Assessment: Possibly Difficult (not fully cooperative with airway exam) - Pre-Operative Health Status ASA Pre-Surgery Classification: ASA3 Proposed Anesthetic Plan: General - Pulmonary Hx Respiratory Symptoms: No - Cardiovascular System Hx Hypertension: Yes - Central Nervous System Hx Psychiatric Problems: Yes (Lewy Body dementia) - Endocrine Hx Renal Disease: No Hx Insulin Dependent Diabetes: No - Hematic Hx Anemia: No - Additional Comments Anesthesia Medical History Comments: Patient unable to provide medical history 2/2 mental status. Medical history obtained from chart review. Patient is unable to provide consent for anesthesia and NOK has been unreachable since admission despite multiple attempts by care team. 2-MD surgical consent signed by surgeon and hospitalist for medically necessary procedure. Surgeon co-signed anesthesia consent.
[2021-12-19] MEDS ORDERED: dexAMETHasone 20 MG/5 ML VIAL ONE (14:09)
[2021-12-19] MEDS ORDERED: CLINDAMYCIN 600 MG/50 mL 600 MG/50 ML BAG IV ONE (14:19)
[2021-12-19] MEDS ORDERED: SODIUM CHLORIDE 0.9% 100 ML IVPB IV ONE (14:28)
[2021-12-19] MEDS ORDERED: KETOROLAC 30 MG/1 ML INJ IV ONE (14:29)
[2021-12-19] MEDS ORDERED: MORPHINE 10 MG/1 ML INJ IM ONE (14:29)
[2021-12-19] MEDS ORDERED: SODIUM CHLORIDE 0.9% 50 ML IVPB IV ONE (14:29)
[2021-12-19] MEDS ORDERED: SODIUM CHLORIDE 0.9% IRR 1,500 ML BOTTLE IR ONE (14:30)
[2021-12-19] MEDS ORDERED: WATER FOR IRRIG STERILE 1,500 ML BOTTLE IR ONE (14:31)
[2021-12-19] MEDS ORDERED: MORPHINE 2 MG/1 ML INJ IV PRN (15:00)
--- NOTE | 2021-12-19 15:02 | Procedure Note ---
Date of procedure: 12/19/21 Pre-op diagnosis: Displaced right intertrochanteric hip fracture Post-op diagnosis: same Procedure: Closed reduction insertion of intramedullary nail right femur Procedure The patient was brought to the OR on the hospital bed She was given general anesthesia and placed onto the [place] supine the legs were placed in longitudinal traction. Using the C-arm fluoroscope was brought in and the hip was reduced in both the AP and lateral planes. Next the right hip was prepped and draped in the usual sterile manner a stab wound was made posterior and superior to the greater trochanter this is carried down sharply through skin and fascia using a [place] elevator the soft tissues were split down to the tip of the greater trochanter A large awl was used to enter the proximal medullary canal this was followed by placement of the guidewire again under C-arm visualization the tip of the guidewire was seen in the distal femur next the measurements were obtained a 11 x 380 intramedullary nail was selected this was followed by reaming up to a 12-1/2 mm diameter following this the intramedullary nail was inserted and a antegrade fashion down the proximal canal into the distal femur next the targeting device for the lag screw was placed and the stab wound was made along the lateral border of the thigh again under C-arm visualization a guidewire was inserted into the femoral neck again measuring this a 80 mm lag screw was chosen near cortex was drilled followed by insertion of the Lag screw next the locking screw proximally was engaged again under C-arm direction AP and lateral views were obtained showing good reduction at the fracture and placement of the hardware following this a wound was copiously irrigated and was closed in a standard routine fashion and the patient tolerated the procedure there were no complications and he was sent to postanesthesia recovery in stable condition Anesthesia: GETA Surgeon: KENTON MELGOZA (Linda Anand, 1st assit) Estimated blood loss: 50-100ml Pathology: none Condition: stable Disposition: PACU
[2021-12-19] MEDS ORDERED: LACTATED RINGERS 1,000 ML ONE (15:10)
--- NOTE | 2021-12-19 16:40 | XRay Report ---
INTRAOPERATIVE FLUOROSCOPY: RIGHT FEMUR INDICATION / CLINICAL INFORMATION: RT INTROCHANTERIC FX/RT FEMUR RODDING. TECHNIQUE: Intraoperative spot images were obtained during the procedure. FINDINGS: Images show internal fixation of right proximal femoral fracture. See operative/procedure note by performing physician for full details. Fluoroscopy Time: 51 seconds. Fluoroscopy Images: 4. Signer Name: Star Quiles MD Signed: 12/19/2021 4:36 PM Workstation Name: [id number]
--- NOTE | 2021-12-19 17:03 | Post Anesthesia Evaluation ---
- Post Anesthesia Evaluation Patient Participated: No (baseline mentation) Airway Patent: Yes Stable Respiratory Function: Yes Nausea/Vomiting: No Temp > 96.8F: Yes Pain Manageable: Yes Adequeate Hydration: Yes Anesthesia Complications: No
[2021-12-20] MEDS: SODIUM CHLORIDE 0.9% 1000 ML 1,000 ML IV SCH ×3 (01:53→21:54)
[2021-12-20 05:22] LABS: Basophils % (Auto) 0.1 % (0.0-1.8); Hematocrit 28.9 % (30.3-42.9); Lymphocytes % (Auto) 8.9 % (13.4-35.0); Mean Corpuscular HGB Conc 35 % (30-34); Mean Corpuscular Volume 93 fl (79-97); Monocytes # (Auto) 1.7 K/mm3 (0.0-0.8); Monocytes % (Auto) 15.8 % (0.0-7.3); Platelet Count 154 K/mm3 (140-440); Red Cell Distribution Width 13.4 % (13.2-15.2)
[2021-12-20] MEDS: KETOROLAC 30 MG/1 ML INJ IV PRN ×3 (05:37→21:53)
[2021-12-20 05:43] LABS: Blood Urea Nitrogen 14 mg/dL (7-17); Calcium 8.8 mg/dL (8.4-10.2); Hemolysis Index 8
[2021-12-20 05:49] LABS: BUN/Creatinine Ratio 23
[2021-12-20] MEDS: ENOXAPARIN 40 MG/0.4 ML INJ SUB-Q SCH (10:17)
--- NOTE | 2021-12-20 14:26 | Post Anesthesia Evaluation ---
- Post Anesthesia Evaluation Patient Participated: No (patient is demented) Airway Patent: Yes Stable Respiratory Function: Yes Nausea/Vomiting: No Temp > 96.8F: Yes Pain Manageable: Yes Adequeate Hydration: Yes Anesthesia Complications: No Block Receding Appropriately: Not Applicable Patient on Ventilator: No Other Comments: patient is in the bed, no obvious distress
--- NOTE | 2021-12-20 14:41 | Progress Note ---
Assessment and Plan -- Closed right intertrochanteric hip fracture; Current Visit: Yes Status: Acute Status post fall. Continue fall precautions Orthopedic surgeon Dr. Valle evaluated the patient Planning IM nailing of right hip today 12/19/2021 Management per orthopedics surgeon Postop care, PT OT, pain management, discharge planning --History of fall; Current Visit: Yes Status: Acute Fall precautions, stabilization of fracture and hip IM nailing, physical therapy occupational therapy and rehabilitation -- dementia; Current Visit: Yes Status: Chronic Supportive care --Hypertension Current Visit: Yes Status: Chronic Continue antihypertensive Patient medically cleared for surgery --DVT prophylaxis Current Visit: Yes Status: Acute Patient on SCDs and will need anticoagulation postop for 5 weeks --Advance care planning Current Visit: Yes Status: Acute Could not be done because of the patient's severe dementia and no family member being available Closely monitor the patient and adjust management as needed Follow orthopedic recommendations. Plan of care reviewed with the nurse I called patient's son who is next of kin Mr. Bill Grey at [phone], no one picked up the phone, could not leave a message as voicemail was not set up. We will try to reach the family again tomorrow I informed the nurse. Brief history; 66-year-old female patient with severe dementia had a fall and sustained right hip fracture, evaluated by orthopedic surgeon, unable to reach family, Finally administrative consent was used, patient underwent surgical procedure IM nailing. 12/18; patient feels slightly better still complains of some pain Orthopedic surgeon evaluated the patient, considering IM nailing 12/19; could not contact family after multiple attempts b y multiple caregivers Risk-management advised to go ahead with the procedure with 2 physicians signature Orthopedic surgeon and I signed the consent and patient went for surgical procedure 12/20: PT recommended MICHELLE Disposition; discharge when patient is stable Subjective Date of service: 12/20/21 Objective - Constitutional Vitals: Vital Signs - 12hr 12/20/21 12/20/21 12/20/21 05:33 10:00 11:41 Temperature 97.7 F 98.3 F Pulse Rate 76 82 Pulse Rate [ 68 Apical] Respiratory 18 18 18 Rate Blood Pressure 109/56 118/49 O2 Sat by Pulse 97 95 94 Oximetry - Labs CBC & Chem 7: 12/20/21 04:43 12/20/21 04:43 Labs: Abnormal lab results 12/20/21 12/20/21 Range/Units 04:43 04:43 RBC 3.10 L (3.65-5.03) M/mm3 Hgb 10.0 L (10.1-14.3) gm/dl Hct 28.9 L D (30.3-42.9) % MCHC 35 H (30-34) % Lymph % (Auto) 8.9 L (13.4-35.0) % [place] % (Auto) 15.8 H (0.0-7.3) % Lymph # (Auto) 1.0 L (1.2-5.4) K/mm3 [place] # (Auto) 1.7 H (0.0-0.8) K/mm3 Seg Neutrophils % 75.2 H (40.0-70.0) % Seg Neutrophils # 8.1 H (1.8-7.7) K/mm3 Chloride 108.8 H (98-107) mmol/L Glucose 121 H (65-100) mg/dL
[2021-12-21] MEDS: KETOROLAC 30 MG/1 ML INJ IV PRN ×2 (05:43→22:10)
[2021-12-21] MEDS: SODIUM CHLORIDE 0.9% 1000 ML 1,000 ML IV SCH (09:47)
[2021-12-21] MEDS: ENOXAPARIN 40 MG/0.4 ML INJ SUB-Q SCH (09:48)
--- NOTE | 2021-12-21 23:38 | Progress Note ---
Assessment and Plan -- Closed right intertrochanteric hip fracture; Current Visit: Yes Status: Acute Status post fall. Continue fall precautions Orthopedic surgeon Dr. Valle evaluated the patient Planning IM nailing of right hip today 12/19/2021 Management per orthopedics surgeon Postop care, PT OT, pain management, discharge planning --History of fall; Current Visit: Yes Status: Acute Fall precautions, stabilization of fracture and hip IM nailing, physical therapy occupational therapy and rehabilitation -- dementia; Current Visit: Yes Status: Chronic Supportive care --Hypertension Current Visit: Yes Status: Chronic Continue antihypertensive Patient medically cleared for surgery --DVT prophylaxis Current Visit: Yes Status: Acute Patient on SCDs and will need anticoagulation postop for 5 weeks --Advance care planning Current Visit: Yes Status: Acute Could not be done because of the patient's severe dementia and no family member being available Closely monitor the patient and adjust management as needed Follow orthopedic recommendations. Plan of care reviewed with the nurse I called patient's son who is next of kin Mr. Bill Grey at [phone], no one picked up the phone, could not leave a message as voicemail was not set up. We will try to reach the family again tomorrow I informed the nurse. Brief history; 66-year-old female patient with severe dementia had a fall and sustained right hip fracture, evaluated by orthopedic surgeon, unable to reach family, Finally administrative consent was used, patient underwent surgical procedure IM nailing. 12/18; patient feels slightly better still complains of some pain Orthopedic surgeon evaluated the patient, considering IM nailing 12/19; could not contact family after multiple attempts b y multiple caregivers Risk-management advised to go ahead with the procedure with 2 physicians signature Orthopedic surgeon and I signed the consent and patient went for surgical procedure 12/20: PT recommended MICHELLE Disposition; discharge when patient is stable Subjective Date of service: 12/21/21 Objective - Constitutional Vitals: Vital Signs - 12hr 12/21/21 12/21/21 12/21/21 12:02 16:27 22:00 Temperature 97.4 F L 98.6 F Pulse Rate 87 76 Pulse Rate [ 68 Apical] Respiratory 19 18 18 Rate Blood Pressure 150/60 113/56 O2 Sat by Pulse 96 93 97 Oximetry 12/21/21 22:22 Temperature 97.8 F Pulse Rate 67 Pulse Rate [ Apical] Respiratory 20 Rate Blood Pressure 149/57 O2 Sat by Pulse 94 Oximetry - Labs CBC & Chem 7: 12/20/21 04:43 12/20/21 04:43
[2021-12-22] MEDS: SODIUM CHLORIDE 0.9% 1000 ML 1,000 ML IV SCH (07:21)
[2021-12-22] MEDS: ENOXAPARIN 40 MG/0.4 ML INJ SUB-Q SCH (10:00)
--- NOTE | 2021-12-22 16:08 | Progress Note ---
Assessment and Plan -- Closed right intertrochanteric hip fracture; Current Visit: Yes Status: Acute Status post fall. Continue fall precautions Orthopedic surgeon Dr. Valle evaluated the patient s/p IM nailing of right hip today 12/19/2021 Management per orthopedics surgeon Postop care, PT OT, pain management, discharge planning --History of fall; Current Visit: Yes Status: Acute Fall precautions, stabilization of fracture and hip IM nailing, physical therapy occupational therapy and rehabilitation -- dementia; Current Visit: Yes Status: Chronic Supportive care --Hypertension Current Visit: Yes Status: Chronic Continue antihypertensive Patient medically cleared for surgery --DVT prophylaxis Current Visit: Yes Status: Acute Patient on SCDs and will need anticoagulation postop for 5 weeks --Advance care planning Current Visit: Yes Status: Acute Could not be done because of the patient's severe dementia and no family member being available Called patient's son who is next of kin Mr. Bill Grey at [phone], no one picked up the phone, could not leave a message as voicemail was not set up. We will try to reach the family again tomorrow I informed the nurse. Brief history; 66-year-old female patient with severe dementia had a fall and sustained right hip fracture, evaluated by orthopedic surgeon, unable to reach family, Finally administrative consent was used, patient underwent surgical procedure IM nailing. 12/18; patient feels slightly better still complains of some pain Orthopedic surgeon evaluated the patient, considering IM nailing 12/19; could not contact family after multiple attempts b y multiple caregivers Risk-management advised to go ahead with the procedure with 2 physicians signature Orthopedic surgeon and I signed the consent and patient went for surgical procedure 12/20: PT recommended MICHELLE Disposition; discharge when MICHELLE is available Subjective Date of service: 12/22/21 Interval history: Patient seen and examined, in no acute distress, vitals noted pending placement Objective - Exam Narrative Exam: General appearance: Present: mild distress, well-nourished, other - EENT Eyes: Present: PERRL (Confused ), EOM intact - Neck Neck: Present: supple, normal ROM - Respiratory Respiratory effort: normal Respiratory: bilateral: diminished, negative: rales, rhonchi, wheezing - Cardiovascular Rhythm: regular Heart Sounds: Present: S1 & S2 - Extremities Extremities: no ischemia, No edema, abnormal (s/p Right hip surgery) - Abdominal General gastrointestinal: soft, non-tender, non-distended, normal bowel sounds - Integumentary Integumentary: Present: clear, warm - Psychiatric Psychiatric: appropriate mood/affect, cooperative - Neurologic Neurologic: no focal deficits, moves all extremities - Constitutional Vitals: Vital Signs - 12hr 12/22/21 12/22/21 12/22/21 04:50 07:47 11:47 Temperature 98.3 F 98.0 F Pulse Rate 67 Respiratory 18 16 Rate Blood Pressure 125/55 135/59 O2 Sat by Pulse 99 97 Oximetry - Labs CBC & Chem 7: 12/20/21 04:43 12/20/21 04:43
[2021-12-23] MEDS: SODIUM CHLORIDE 0.9% 1000 ML 1,000 ML IV SCH (03:37)
[2021-12-23] MEDS: ENOXAPARIN 40 MG/0.4 ML INJ SUB-Q SCH (11:14)
--- NOTE | 2021-12-23 12:47 | Progress Note ---
Assessment and Plan s/p IM nailing severe dementia awaiting placement Subjective Date of service: 12/23/21 Interval history: patient talking to herself, doesn't appear to be in any discomfort Objective Vital signs: Vital Signs - 12hr 12/23/21 05:25 Temperature 97.7 F Respiratory 16 Rate Blood Pressure 138/81 - Labs CBC & BMP: 12/20/21 04:43 12/20/21 04:43
--- NOTE | 2021-12-23 14:34 | XRay Report ---
RIGHT FEMUR 2 VIEWS INDICATION / CLINICAL INFORMATION: post op evaluation. COMPARISON: None available. FINDINGS: BONES / JOINT(S): Placement of a compression screw with intramedullary component across an intertroch anteric fracture. Alignment is near-anatomic. No significant arthritis. SOFT TISSUES: No significant abnormality. ADDITIONAL FINDINGS: None. Signer Name: Salazar Church MD Signed: 12/23/2021 2:30 PM Workstation Name: [id number]
--- NOTE | 2021-12-23 19:19 | Progress Note ---
Assessment and Plan Assessment and plan: -- Closed right intertrochanteric hip fracture; Current Visit: Yes Status: Acute Status post fall. Continue fall precautions Orthopedic surgeon Dr. Valle evaluated the patient s/p IM nailing of right hip today 12/19/2021 Management per orthopedics surgeon Postop care, PT OT, pain management, discharge planning Patient lives at a memory care unit, may need SNF for rehab As per CM, the patient can ambulate may be able to return to her [facility]AY. --History of fall; Current Visit: Yes Status: Acute Fall precautions, stabilization of fracture and hip IM nailing, physical therapy occupational therapy and rehabilitation --Severe dementia; Current Visit: Yes Status: Chronic Pleasantly confused with incoherent talk supportive care --Hypertension Current Visit: Yes Status: Chronic Continue antihypertensive Patient medically cleared for surgery --DVT prophylaxis Current Visit: Yes Status: Acute Patient on SCDs and will need anticoagulation postop for 5 weeks --Advance care planning Current Visit: Yes Status: Acute Could not be done because of the patient's severe dementia and no family member being available Called patient's son who is next of kin Mr. Bill Grey at [phone], no one picked up the phone, could not leave a message as voicemail was not set up. We will try to reach the family again tomorrow I informed the nurse. Brief history; 66-year-old female patient with severe dementia had a fall and sustained right hip fracture, evaluated by orthopedic surgeon, unable to reach family, Finally administrative consent was used, patient underwent surgical procedure IM nailing. 12/18; patient feels slightly better still complains of some pain Orthopedic surgeon evaluated the patient, considering IM nailing 12/19; could not contact family after multiple attempts b y multiple caregivers Risk-management advised to go ahead with the procedure with 2 physicians signature Orthopedic surgeon and I signed the consent and patient went for surgical procedure 12/20: PT recommended MICHELLE 12/23: Postop stable, Patient lives at a memory care unit, may need SNF for rehab As per CM, the patient can ambulate may be able to return to her [facility]. Disposition; discharge when MICHELLE is availab Discussed with the RN and CM History Interval history: Patient is clinically confused/demented. She is alert with clear speech but incoherent, talking to her self and laughing. Currently not agitated. Vital signs and labs stable. Hospitalist Physical - Constitutional Vitals: Temp Pulse Resp BP Pulse Ox 97.8 F 68 16 149/46 98 12/23/21 16:34 12/23/21 16:34 12/23/21 16:34 12/23/21 16:34 12/23/21 16:34 General appearance: Present: no acute distress, well-nourished, other (Pleasantly demented, very confused, talking incoherently) - EENT Eyes: Present: PERRL, scleral icterus ENT: hearing intact - Neck Neck: Present: supple - Respiratory Respiratory effort: normal Respiratory: bilateral: CTA - Cardiovascular Rhythm: regular - Extremities Extremities: No edema Extremity abnormal: other (No drainage from hip incision.) - Abdominal General gastrointestinal: soft, non-tender, non-distended - Integumentary Integumentary: Absent: rash - Psychiatric Psychiatric: no agitated - Neurologic Neurologic: other (Alert but very confused, speech clear and but incoherent, talking to herself and laughing. Moves all extremities other than right lower extremity with recent right hip surgery. Gait not tested.) Results - Labs CBC & Chem 7: 12/20/21 04:43 12/20/21 04:43 Labs: Laboratory Last Values WBC 10.7 K/mm3 (4.5-11.0) 12/20/21 04:43 RBC 3.10 M/mm3 (3.65-5.03) L 12/20/21 04:43 Hgb 10.0 gm/dl (10.1-14.3) L 12/20/21 04:43 Hct 28.9 % (30.3-42.9) L D 12/20/21 04:43 MCV 93 fl (79-97) 12/20/21 04:43 MCH 32 pg (28-32) 12/20/21 04:43 MCHC 35 % (30-34) H 12/20/21 04:43 RDW 13.4 % (13.2-15.2) 12/20/21 04:43 Plt Count 154 K/mm3 (140-440) 12/20/21 04:43 Lymph % (Auto) 8.9 % (13.4-35.0) L 12/20/21 04:43 [place] % (Auto) 15.8 % (0.0-7.3) H 12/20/21 04:43 Eos % (Auto) 0.0 % (0.0-4.3) 12/20/21 04:43 Baso % (Auto) 0.1 % (0.0-1.8) 12/20/21 04:43 Lymph # (Auto) 1.0 K/mm3 (1.2-5.4) L 12/20/21 04:43 [place] # (Auto) 1.7 K/mm3 (0.0-0.8) H 12/20/21 04:43 Eos # (Auto) 0.0 K/mm3 (0.0-0.4) 12/20/21 04:43 Baso # (Auto) 0.0 K/mm3 (0.0-0.1) 12/20/21 04:43 Seg Neutrophils % 75.2 % (40.0-70.0) H 12/20/21 04:43 Seg Neutrophils # 8.1 K/mm3 (1.8-7.7) H 12/20/21 04:43 PT 15.0 Sec. (12.2-14.9) H 12/16/21 14:50 INR 1.06 (0.87-1.13) 12/16/21 14:50 APTT 27.8 Sec. (24.2-36.6) 12/16/21 14:50 Sodium 144 mmol/L (137-145) 12/20/21 04:43 Potassium 4.4 mmol/L (3.6-5.0) 12/20/21 04:43 Chloride 108.8 mmol/L (98-107) H 12/20/21 04:43 Carbon Dioxide 23 mmol/L (22-30) 12/20/21 04:43 Anion Gap 17 mmol/L 12/20/21 04:43 BUN 14 mg/dL (7-17) 12/20/21 04:43 Creatinine 0.6 mg/dL (0.6-1.2) 12/20/21 04:43 Estimated GFR > 60 ml/min 12/20/21 04:43 BUN/Creatinine Ratio 23 % 12/20/21 04:43 Glucose 121 mg/dL (65-100) H 12/20/21 04:43 POC Glucose 86 mg/dL (70-105) 12/22/21 07:29 Calcium 8.8 mg/dL (8.4-10.2) 12/20/21 04:43 Coronavirus (PCR) Negative (Negative) 12/20/21 Unknown Blood Type O POSITIVE 12/16/21 15:00 Antibody Screen Negative 12/16/21 15:00 Tripathi/IV: Voiding Method External Female Catheter Active Medications - Current Medications Current Medications: Generic Name Dose Route Start Last Admin Trade Name Freq PRN Reason Stop Dose Admin Acetaminophen 650 mg 12/16/21 18:03 Acetaminophen 325 Mg Tab PO Q4H PRN Pain MILD(1-3)/Fever >100.5/RODRIGUEZ Enoxaparin Sodium 40 mg 12/20/21 10:00 12/22/21 10:00 Enoxaparin 40 Mg/0.4 Ml Inj SUB-Q 40 mg QDAY LAAN Administration Sodium Chloride 1,000 mls @ 100 mls/hr 12/16/21 18:15 12/23/21 03:37 Nacl 0.9% 1000 Ml IV 100 mls/hr DIRECT ALAN Administration Ketorolac Tromethamine 15 mg 12/19/21 14:54 12/21/21 22:10 Ketorolac 30 Mg/1 Ml Inj IV 12/24/21 14:53 15 mg Q6H PRN Administration Pain, Moderate (4-6) Morphine Sulfate 2 mg 12/19/21 15:00 Morphine 2 Mg/1 Ml Inj IV Q4H PRN Pain, Moderate (4-6) Ondansetron HCl 4 mg 12/16/21 18:03 Ondansetron 4 Mg/2 Ml Inj IV Q3H PRN Nausea And Vomiting Sodium Chloride 10 ml 12/16/21 22:00 12/22/21 21:01 Sodium Chloride 0.9% 10 Ml Flush Syringe IV 10 ml BID ALAN Administration Sodium Chloride 10 ml 12/16/21 18:03 Sodium Chloride 0.9% 10 Ml Flush Syringe IV PRN PRN LINE FLUSH Sodium Chloride 10 ml 12/19/21 15:00 Sodium Chloride 0.9% 10 Ml Flush Syringe IV 12/31/21 14:59 PRN NR Nutrition/Malnutrition Assess - Dietary Evaluation Nutrition/Malnutrition Findings: Nutrition Notes Start: 12/17/21 11:15 Freq: Status: Active Protocol: Document 12/20/21 18:19 GONZALO (Rec: 12/20/21 18:35 GONZALO [id number]) Nutrition Notes Initial or Follow up Brief Note Current Diagnosis Hypertension Other Pertinent Diagnosis s/p R-Hip Fracture, Lewy Body Dementia. Current Diet Mechanical Soft Diet (since B 12/20). Height 5 ft 4 in Weight 68 kg [place] Body Weight (kg) 54.54 BMI 25.7 Weight change and time frame No body weight change reported in 3 days. Weight Status Overweight Subjective/Other Information RD consult for routine F/U on Dietary Advancement. Diet changed from Reguler to Merchanical Soft Diet. Pt's PO intake of meals has been Good (75%), according to ADL notes. Pt is on Room Air, O2 saturation @ 95%, according to Physical Assessment History notes, Procedure on 12/19: R-Femur closed reduction insertion of intramedullary nail. Well tolerated, according to Operative report notes. Percent of energy/protein needs met: Prescribed Mechanical Soft Diet provides for energy/ protein needs (2,048 Kcal/97 g ) during LOS. Current % PO Good (75-100%) Is patient on ventilator? No Is Patient Ambulatory and/or Out of Bed No REE-([place]-confined to bed) [phone] Calculation Used for Recommendations [place] Additional Notes Protein: 1-1.2 g/Kg ABW; 68-82 g/day. Fluids: 1 ml/Kcal, or as per MD. Nutrition Intervention Change Diet Order: Continue Mechanical Soft Diet, advance as tolerated. Follow-Up By: 12/27/21 Additional Comments Continue monitoring food tolerance, %PO intake of meals , and BM.
[2021-12-24] MEDS: SODIUM CHLORIDE 0.9% 1000 ML 1,000 ML IV SCH ×2 (04:36→15:19)
[2021-12-24] MEDS: ENOXAPARIN 40 MG/0.4 ML INJ SUB-Q SCH (11:05)
[2021-12-24] MEDS: QUEtiapine 25 MG TAB PO SCH ×2 (11:07→23:11)
[2021-12-24 13:44] LABS: Basophils % (Auto) 0.7 % (0.0-1.8); Eosinophils # (Auto) 0.1 K/mm3 (0.0-0.4); Eosinophils % (Auto) 2.2 % (0.0-4.3); Hematocrit 20.2 % (30.3-42.9); Hemoglobin 6.9 gm/dl (10.1-14.3); Lymphocytes # (Auto) 0.9 K/mm3 (1.2-5.4); Lymphocytes % (Auto) 18.3 % (13.4-35.0); Mean Corpuscular HGB Conc 34 % (30-34); Mean Corpuscular Volume 93 fl (79-97); Monocytes # (Auto) 0.7 K/mm3 (0.0-0.8); Platelet Count 235 K/mm3 (140-440); Red Blood Count 2.18 M/mm3 (3.65-5.03); Red Cell Distribution Width 13.7 % (13.2-15.2)
[2021-12-24 13:53] LABS: Alanine Aminotransferase 17 units/L (7-56); Albumin 2.8 g/dL (3.9-5); Blood Urea Nitrogen 4 mg/dL (7-17); Calcium 8.3 mg/dL (8.4-10.2); Hemolysis Index 5
[2021-12-24 14:21] LABS: BUN/Creatinine Ratio 10
--- NOTE | 2021-12-24 19:13 | Progress Note ---
Assessment and Plan Assessment and plan: -- Closed right intertrochanteric hip fracture; Current Visit: Yes Status: Acute Status post fall. Continue fall precautions Orthopedic surgeon Dr. Valle evaluated the patient s/p IM nailing of right hip today 12/19/2021 Management per orthopedics surgeon Postop care, PT OT, pain management, discharge planning Patient lives at a memory care unit, may need SNF for rehab As per CM, the patient can ambulate may be able to return to her [facility]AY. --History of fall; Current Visit: Yes Status: Acute Fall precautions, stabilization of fracture and hip IM nailing, physical therapy occupational therapy and rehabilitation --Severe dementia; Current Visit: Yes Status: Chronic Pleasantly confused with incoherent talk supportive care --Hypertension Current Visit: Yes Status: Chronic Continue antihypertensive Patient medically cleared for surgery --Acute postoperative progressive blood loss anemia Normocytic postoperative anemia, hemoglobin progressively dropping, 6.9 today. Ordered PRBC x1. ---DVT prophylaxis Current Visit: Yes Status: Acute Patient on SCDs and will need anticoagulation postop for 5 weeks --Advance care planning Current Visit: Yes Status: Acute Could not be done because of the patient's severe dementia and no family member being available Called patient's son who is next of kin Mr. Bill Grey at [phone], no one picked up the phone, could not leave a message as voicemail was not set up. We will try to reach the family again tomorrow I informed the nurse. Brief history; 66-year-old female patient with severe dementia had a fall and sustained right hip fracture, evaluated by orthopedic surgeon, unable to reach family, Finally administrative consent was used, patient underwent surgical procedure IM nailing. 12/18; patient feels slightly better still complains of some pain Orthopedic surgeon evaluated the patient, considering IM nailing 12/19; could not contact family after multiple attempts b y multiple caregivers Risk-management advised to go ahead with the procedure with 2 physicians signnaiu re Orthopedic surgeon and I signed the consent and patient went for surgical procedure 12/20: PT recommended MICHELLE 12/23: Postop stable 12/24: Generally pleasantly confused but was agitated last night. Somnolent this morning, received Seroquel. PRBC x1 ordered for progressive drop in hemoglobin. Disposition: Patient lives at a memory care unit, may need SNF for rehab As per CM, the patient can ambulate may be able to return to her [facility]. Possible discharge on Sunday. Discussed with the RN and CM History Interval history: Patient is pleasantly demented. She was very agitated with last night but calm and somnolent today likely from Seroquel during this morning. Vital signs stable. Hemoglobin progressively dropping., 6.9 today, PRBC x1 ordered. Right hip wound looks unremarkable. Hospitalist Physical - Constitutional Vitals: Temp Pulse Resp BP Pulse Ox 98.4 F 85 16 116/70 97 12/24/21 12:35 12/24/21 12:35 12/24/21 12:35 12/24/21 12:35 12/24/21 12:35 General appearance: Present: no acute distress, well-nourished, other (Currently somnolent but arousable.) - EENT Eyes: Present: PERRL, EOM intact ENT: clear oral mucosa - Neck Neck: Present: supple. Absent: masses or JVD - Respiratory Respiratory effort: normal Respiratory: bilateral: CTA - Cardiovascular Rhythm: regular - Extremities Extremities: No edema - Abdominal General gastrointestinal: soft, non-tender, non-distended, normal bowel sounds - Integumentary Integumentary: Absent: rash (Right hip incisiondressings in place. No signifi cant swelling or erythema. No drainage.) - Psychiatric Psychiatric: other (Currently somnolent, was agitated last night.) - Neurologic Neurologic: other (History of advanced dementia.) Results - Labs CBC & Chem 7: 12/24/21 13:19 12/24/21 13:19 Labs: Laboratory Last Values WBC 4.8 K/mm3 (4.5-11.0) 12/24/21 13:19 RBC 2.18 M/mm3 (3.65-5.03) L 12/24/21 13:19 Hgb 6.9 gm/dl (10.1-14.3) L 12/24/21 13:19 Hct 20.2 % (30.3-42.9) L 12/24/21 13:19 MCV 93 fl (79-97) 12/24/21 13:19 MCH 32 pg (28-32) 12/24/21 13:19 MCHC 34 % (30-34) 12/24/21 13:19 RDW 13.7 % (13.2-15.2) 12/24/21 13:19 Plt Count 235 K/mm3 (140-440) 12/24/21 13:19 Lymph % (Auto) 18.3 % (13.4-35.0) 12/24/21 13:19 [place] % (Auto) [place] 12/24/21 13:19 Eos % (Auto) 2.2 % (0.0-4.3) 12/24/21 13:19 Baso % (Auto) 0.7 % (0.0-1.8) 12/24/21 13:19 Lymph # (Auto) 0.9 K/mm3 (1.2-5.4) L 12/24/21 13:19 [place] # (Auto) 0.7 K/mm3 (0.0-0.8) 12/24/21 13:19 Eos # (Auto) 0.1 K/mm3 (0.0-0.4) 12/24/21 13:19 Baso # (Auto) 0.0 K/mm3 (0.0-0.1) 12/24/21 13:19 Seg Neutrophils % 63.3 % (40.0-70.0) 12/24/21 13:19 Seg Neutrophils # 3.0 K/mm3 (1.8-7.7) 12/24/21 13:19 PT 15.0 Sec. (12.2-14.9) H 12/16/21 14:50 INR 1.06 (0.87-1.13) 12/16/21 14:50 APTT 27.8 Sec. (24.2-36.6) 12/16/21 14:50 Sodium 143 mmol/L (137-145) 12/24/21 13:19 Potassium 3.2 mmol/L (3.6-5.0) L D 12/24/21 13:19 Chloride 110.3 mmol/L (98-107) H 12/24/21 13:19 Carbon Dioxide 24 mmol/L (22-30) 12/24/21 13:19 Anion Gap 12 mmol/L 12/24/21 13:19 BUN 4 mg/dL (7-17) L 12/24/21 13:19 Creatinine 0.4 mg/dL (0.6-1.2) L 12/24/21 13:19 Estimated GFR > 60 ml/min 12/24/21 13:19 BUN/Creatinine Ratio 10 % 12/24/21 13:19 Glucose 102 mg/dL (65-100) H 12/24/21 13:19 POC Glucose 86 mg/dL (70-105) 12/22/21 07:29 Calcium 8.3 mg/dL (8.4-10.2) L 12/24/21 13:19 Total Bilirubin 0.80 mg/dL (0.1-1.2) 12/24/21 13:19 AST 11 units/L (5-40) 12/24/21 13:19 ALT 17 units/L (7-56) 12/24/21 13:19 Alkaline Phosphatase 77 units/L (35-129) 12/24/21 13:19 Total Protein 4.2 g/dL (6.3-8.2) L 12/24/21 13:19 Albumin 2.8 g/dL (3.9-5) L 12/24/21 13:19 Albumin/Globulin Ratio 2.0 % 12/24/21 13:19 Coronavirus (PCR) Negative (Negative) 12/20/21 Unknown Blood Type O POSITIVE 12/16/21 15:00 Antibody Screen Negative 12/16/21 15:00 Tripathi/IV: Voiding Method External Female Catheter Active Medications - Current Medications Current Medications: Generic Name Dose Route Start Last Admin Trade Name Freq PRN Reason Stop Dose Admin Acetaminophen 650 mg 12/16/21 18:03 Acetaminophen 325 Mg Tab PO Q4H PRN Pain MILD(1-3)/Fever >100.5/RODRIGUEZ Enoxaparin Sodium 40 mg 12/20/21 10:00 12/24/21 11:05 Enoxaparin 40 Mg/0.4 Ml Inj SUB-Q 40 mg QDAY ALAN Administration Sodium Chloride 1,000 mls @ 100 mls/hr 12/16/21 18:15 12/24/21 15:19 Nacl 0.9% 1000 Ml IV 100 mls/hr DIRECT ALAN Administration Morphine Sulfate 2 mg 12/19/21 15:00 Morphine 2 Mg/1 Ml Inj IV Q4H PRN Pain, Moderate (4-6) Quetiapine Fumarate 25 mg 12/24/21 11:00 12/24/21 11:07 Quetiapine 25 Mg Tab PO 25 mg BID ALAN Administration Sodium Chloride 10 ml 12/16/21 22:00 12/24/21 11:05 Sodium Chloride 0.9% 10 Ml Flush Syringe IV 10 ml BID ALAN Administration Sodium Chloride 10 ml 12/16/21 18:03 Sodium Chloride 0.9% 10 Ml Flush Syringe IV PRN PRN LINE FLUSH Sodium Chloride 10 ml 12/19/21 15:00 Sodium Chloride 0.9% 10 Ml Flush Syringe IV 12/31/21 14:59 PRN NR Nutrition/Malnutrition Assess - Dietary Evaluation Nutrition/Malnutrition Findings: Nutrition Notes Start: 12/17/21 11:15 Freq: Status: Active Protocol: Document 12/20/21 18:19 GONZALO (Rec: 12/20/21 18:35 GONZALO [id number]) Nutrition Notes Initial or Follow up Brief Note Current Diagnosis Hypertension Other Pertinent Diagnosis s/p R-Hip Fracture, Lewy Body Dementia. Current Diet Mechanical Soft Diet (since B 12/20). Height 5 ft 4 in Weight 68 kg [place] Body Weight (kg) 54.54 BMI 25.7 Weight change and time frame No body weight change reported in 3 days. Weight Status Overweight Subjective/Other Information RD consult for routine F/U on Dietary Advancement. Diet changed from Reguler to Merchanical Soft Diet. Pt's PO intake of meals has been Good (75%), according to ADL notes. Pt is on Room Air, O2 saturation @ 95%, according to Physical Assessment History notes, Procedure on 12/19: R-Femur closed reduction insertion of intramedullary nail. Well tolerated, according to Operative report notes. Percent of energy/protein needs met: Prescribed Mechanical Soft Diet provides for energy/ protein needs (2,048 Kcal/97 g ) during LOS. Current % PO Good (75-100%) Is patient on ventilator? No Is Patient Ambulatory and/or Out of Bed No [facility] [phone] Calculation Used for Recommendations [facility] Additional Notes Protein: 1-1.2 g/Kg ABW; 68-82 g/day. Fluids: 1 ml/Kcal, or as per MD. Nutrition Intervention Change Diet Order: Continue Mechanical Soft Diet, advance as tolerated. Follow-Up By: 12/27/21 Additional Comments Continue monitoring food tolerance, %PO intake of meals , and BM.
[2021-12-25] MEDS ORDERED: SODIUM CHLORIDE 0.9% 500 ML 500 ML IV ONE (03:38)
[2021-12-25] MEDS ORDERED: QUEtiapine 25 MG TAB PO PRN (03:39)
[2021-12-25] MEDS: SODIUM CHLORIDE 0.9% 1000 ML 1,000 ML IV SCH ×2 (06:47→11:28)
[2021-12-25] MEDS: ENOXAPARIN 40 MG/0.4 ML INJ SUB-Q SCH (11:28)
[2021-12-25] MEDS ORDERED: POTASSIUM CHLORIDE ER 20 MEQ TAB PO ONE ×2 (13:00→16:50)
--- NOTE | 2021-12-25 16:17 | Progress Note ---
Assessment and Plan 66-year-old female patient with severe dementia had a fall and sustained right hip fracture, evaluated by orthopedic surgeon, unable to reach family, Finally administrative consent was used, patient underwent surgical procedure IM nailing. 12/18; patient feels slightly better still complains of some pain Orthopedic surgeon evaluated the patient, considering IM nailing 12/19; could not contact family after multiple attempts by multiple caregivers Risk-management advised to go ahead with the procedure with 2 physicians signature Orthopedic surgeon and I signed the consent and patient went for surgical procedure 12/20: PT recommended MICEHLLE 12/21: Clinically stable, pending MICHELLE placement 12/22: Pending MICHELLE, cont supportive care, 12/23: Postop stable 12/24: Generally pleasantly confused but was agitated last night. Somnolent this morning, received Seroquel. PRBC x1 ordered for progressive drop in hemoglobin. 12/25: Unable to transfuse yesterday and till today as could not obtain consent. Patient need emergent blood transfusion as h/h dropped, CM to find out family member info. will hold heparin/lovenox, ordered stool for occult blood. vitals stable, pt w/o any acute distress. cont to follow. monitor h/h, initiate protonix, pt may need GI evaluation A/P -- Closed right intertrochanteric hip fracture; Current Visit: Yes Status: Acute Status post fall. Continue fall precautions Orthopedic surgeon Dr. Valle evaluated the patient s/p IM nailing of right hip on 12/19/2021 Management per orthopedics surgeon Postop care, PT OT, pain management, discharge planning Patient lives at a memory care unit, may need SNF for rehab As per CM, the patient can ambulate may be able to return to her LONG TERM. --History of fall; Current Visit: Yes Status: Acute Fall precautions, stabilization of fracture and hip IM nailing, physical therapy occupational therapy and rehabilitation --Severe dementia; Current Visit: Yes Status: Chronic Pleasantly confused with incoherent talk supportive care --Hypertension Current Visit: Yes Status: Chronic Continue antihypertensive Patient medically cleared for surgery --Acute postoperative progressive blood loss anemia Normocytic postoperative anemia, hemoglobin progressively dropping, 6.9 today. Ordered PRBC x1. ---DVT prophylaxis Current Visit: Yes Status: Acute Patient on SCDs and will need anticoagulation postop for 5 weeks --Advance care planning Current Visit: Yes Status: Acute Could not be done because of the patient's severe dementia and no family member being available Disposition: Patient lives at a memory care unit, may need SNF for rehab As per CM, the patient can ambulate may be able to return to her [facility]. Possible discharge on Sunday. Discussed with the RN and CM Subjective Date of service: 12/25/21 Interval history: Patient seen and examined, in no acute distress, vitals noted Pending placement Hb dropped to 6.5, unable to get consent for blood transfusion as no family members reachable to give consent Objective - Exam Narrative Exam: General appearance: Present: mild distress, well-nourished, other - EENT Eyes: Present: PERRL (Confused ), EOM intact - Neck Neck: Present: supple, normal ROM - Respiratory Respiratory effort: normal Respiratory: bilateral: diminished, negative: rales, rhonchi, wheezing - Cardiovascular Rhythm: regular Heart Sounds: Present: S1 & S2 - Extremities Extremities: no ischemia, No edema, abnormal (s/p Right hip surgery) - Abdominal General gastrointestinal: soft, non-tender, non-distended, normal bowel sounds - Integumentary Integumentary: Present: clear, warm - Psychiatric Psychiatric: appropriate mood/affect, cooperative - Neurologic Neurologic: no focal deficits, moves all extremities - Constitutional Vitals: Vital Signs - 12hr 12/25/21 12/25/21 12/25/21 10:00 11:26 11:57 Temperature 99.5 F Pulse Rate 69 114 H Respiratory 17 18 Rate Blood Pressure 137/60 Blood Pressure 132/64 [Left] O2 Sat by Pulse 94 99 90 Oximetry - Labs CBC & Chem 7: 12/25/21 20:11 12/24/21 13:19 Labs: Abnormal lab results 12/25/21 Range/Units 04:53 Crossmatch See Detail
[2021-12-25 20:50] LABS: Hemoglobin 6.5 gm/dl (10.1-14.3)
[2021-12-25 20:52] LABS: Hematocrit TNR % (30.3-42.9); Hemoglobin TNR gm/dl (10.1-14.3)
[2021-12-25 21:04] LABS: Hematocrit 19.1 % (30.3-42.9)
[2021-12-26 07:30] LABS: Basophils # (Auto) 0.1 K/mm3 (0.0-0.1); Basophils % (Auto) 0.8 % (0.0-1.8); Eosinophils % (Auto) 0.5 % (0.0-4.3); Hematocrit 24.7 % (30.3-42.9); Hemoglobin 8.6 gm/dl (10.1-14.3); Lymphocytes # (Auto) 0.7 K/mm3 (1.2-5.4); Lymphocytes % (Auto) 10.5 % (13.4-35.0); Mean Corpuscular HGB Conc 35 % (30-34); Mean Corpuscular Volume 91 fl (79-97); Monocytes % (Auto) 13.8 % (0.0-7.3); Platelet Count 302 K/mm3 (140-440); Red Blood Count 2.71 M/mm3 (3.65-5.03); Red Cell Distribution Width 13.8 % (13.2-15.2)
[2021-12-26 07:48] LABS: Blood Urea Nitrogen 4 mg/dL (7-17); Calcium 8.2 mg/dL (8.4-10.2); Hemolysis Index 12
[2021-12-26 07:49] LABS: BUN/Creatinine Ratio 13
--- NOTE | 2021-12-26 08:30 | Progress Note ---
Assessment and Plan Assessment and plan: 66-year-old female patient with severe dementia had a fall and sustained right hip fracture, evaluated by orthopedic surgeon, unable to reach family, Finally administrative consent was used, patient underwent surgical procedure IM nailing. 12/18; patient feels slightly better still complains of some pain Orthopedic surgeon evaluated the patient, considering IM nailing 12/19; could not contact family after multiple attempts by multiple caregivers Risk-management advised to go ahead with the procedure with 2 physicians signature Orthopedic surgeon and I signed the consent and patient went for surgical procedure 12/20: PT recommended MICHELLE 12/21: Clinically stable, pending MICHELLE placement 12/22: Pending MICHELLE, cont supportive care, 12/23: Postop stable 12/24: Generally pleasantly confused but was agitated last night. Somnolent this morning, received Seroquel. PRBC x1 ordered for progressive drop in hemoglobin. 12/25: Unable to transfuse yesterday and till today as could not obtain consent. Patient need emergent blood transfusion as h/h dropped, CM to find out family member info. will hold heparin/lovenox, ordered stool for occult blood. vitals stable, pt w/o any acute distress. cont to follow. monitor h/h, initiate protonix, pt may need GI evaluation 12/26; possible discharge to assisted living facility with home hospice tomorrow if stable A/P -- Closed right intertrochanteric hip fracture; Current Visit: Yes Status: Acute Status post fall. Continue fall precautions Orthopedic surgeon Dr. Valle evaluated the patient s/p IM nailing of right hip on 12/19/2021 Management per orthopedics surgeon Postop care, PT OT, pain management, discharge planning Patient lives at a memory care unit, may need SNF for rehab As per CM, the patient can ambulate may be able to return to her [facility]. --History of fall; Current Visit: Yes Status: Acute Fall precautions, stabilization of fracture and hip IM nailing, physical therapy occupational therapy and rehabilitation --Severe dementia; Current Visit: Yes Status: Chronic Pleasantly confused with incoherent talk supportive care --Hypertension Current Visit: Yes Status: Chronic Continue antihypertensive Patient medically cleared for surgery --Acute postoperative progressive blood loss anemia Normocytic postoperative anemia, hemoglobin progressively dropping, 6.9 today. Ordered PRBC x1. ---DVT prophylaxis Current Visit: Yes Status: Acute Patient on SCDs and will need anticoagulation postop for 5 weeks --Advance care planning Current Visit: Yes Status: Acute Could not be done because of the patient's severe dementia and no family member being available Disposition: Patient lives at a memory care unit, may need SNF for rehab As per CM, the patient can ambulate may be able to return to her [facility]. Discussed with the RN and CM Due to severe dementia patient is unable to participate in therapy as recommended Possible discharge back to assisted living facility with home hospice tomorrow if stable Full CODE STATUS CM assisting with the discharge planning History Interval history: I have seen and examined the patient at the bedside Patient's chart and medications reviewed No new events reported by nursing Patient is confused Vital signs noted Hospitalist Physical - Constitutional Vitals: Temp Pulse Resp BP Pulse Ox 99.2 F 68 17 141/64 100 12/26/21 04:19 12/26/21 04:19 12/26/21 04:19 12/26/21 04:19 12/26/21 04:19 General appearance: Present: no acute distress, well-nourished, other (Currently somnolent but arousable.) - EENT Eyes: Present: PERRL, EOM intact - Neck Neck: Present: supple, normal ROM - Respiratory Respiratory effort: normal Respiratory: bilateral: diminished, negative: rales, rhonchi, wheezing - Cardiovascular Rhythm: regular Heart Sounds: Present: S1 & S2 - Extremities Extremities: no ischemia, No edema - Abdominal General gastrointestinal: soft, non-tender, non-distended, normal bowel sounds - Integumentary Integumentary: Present: clear, warm - Psychiatric Psychiatric: cooperative, other (Confused) - Neurologic Neurologic: moves all extremities, other (Confused dementia) Results - Labs CBC & Chem 7: 12/26/21 14:47 12/26/21 06:59 Labs: Laboratory Last Values WBC 7.0 K/mm3 (4.5-11.0) 12/26/21 06:59 RBC 2.71 M/mm3 (3.65-5.03) L 12/26/21 06:59 Hgb 8.6 gm/dl (10.1-14.3) L 12/26/21 06:59 Hct 24.7 % (30.3-42.9) L 12/26/21 06:59 MCV 91 fl (79-97) 12/26/21 06:59 MCH 32 pg (28-32) 12/26/21 06:59 MCHC 35 % (30-34) H 12/26/21 06:59 RDW 13.8 % (13.2-15.2) 12/26/21 06:59 Plt Count 302 K/mm3 (140-440) 12/26/21 06:59 Lymph % (Auto) 10.5 % (13.4-35.0) L 12/26/21 06:59 [place] % (Auto) 13.8 % (0.0-7.3) H 12/26/21 06:59 Eos % (Auto) 0.5 % (0.0-4.3) 12/26/21 06:59 Baso % (Auto) 0.8 % (0.0-1.8) 12/26/21 06:59 Lymph # (Auto) 0.7 K/mm3 (1.2-5.4) L 12/26/21 06:59 [place] # (Auto) 1.0 K/mm3 (0.0-0.8) H 12/26/21 06:59 Eos # (Auto) 0.0 K/mm3 (0.0-0.4) 12/26/21 06:59 Baso # (Auto) 0.1 K/mm3 (0.0-0.1) 12/26/21 06:59 Seg Neutrophils % 74.4 % (40.0-70.0) H 12/26/21 06:59 Seg Neutrophils # 5.2 K/mm3 (1.8-7.7) 12/26/21 06:59 PT 15.0 Sec. (12.2-14.9) H 12/16/21 14:50 INR 1.06 (0.87-1.13) 12/16/21 14:50 APTT 27.8 Sec. (24.2-36.6) 12/16/21 14:50 Sodium 138 mmol/L (137-145) 12/26/21 06:59 Potassium 3.7 mmol/L (3.6-5.0) 12/26/21 06:59 Chloride 103.2 mmol/L (98-107) 12/26/21 06:59 Carbon Dioxide 23 mmol/L (22-30) 12/26/21 06:59 Anion Gap 16 mmol/L 12/26/21 06:59 BUN 4 mg/dL (7-17) L 12/26/21 06:59 Creatinine 0.3 mg/dL (0.6-1.2) L 12/26/21 06:59 Estimated GFR > 60 ml/min 12/26/21 06:59 BUN/Creatinine Ratio 13 % 12/26/21 06:59 Glucose 101 mg/dL (65-100) H 12/26/21 06:59 POC Glucose 86 mg/dL (70-105) 12/22/21 07:29 Calcium 8.2 mg/dL (8.4-10.2) L 12/26/21 06:59 Total Bilirubin 0.80 mg/dL (0.1-1.2) 12/24/21 13:19 AST 11 units/L (5-40) 12/24/21 13:19 ALT 17 units/L (7-56) 12/24/21 13:19 Alkaline Phosphatase 77 units/L (35-129) 12/24/21 13:19 Total Protein 4.2 g/dL (6.3-8.2) L 12/24/21 13:19 Albumin 2.8 g/dL (3.9-5) L 12/24/21 13:19 Albumin/Globulin Ratio 2.0 % 12/24/21 13:19 Coronavirus (PCR) Negative (Negative) 12/20/21 Unknown Blood Type O POSITIVE 12/25/21 04:53 Antibody Screen Negative 12/25/21 04:53 Crossmatch See Detail 12/25/21 04:53 Tripathi/IV: Voiding Method External Female Catheter Active Medications - Current Medications Current Medications: Generic Name Dose Route Start Last Admin Trade Name Freq PRN Reason Stop Dose Admin Acetaminophen 650 mg 12/16/21 18:03 Acetaminophen 325 Mg Tab PO Q4H PRN Pain MILD(1-3)/Fever >100.5/RODRIGUEZ Sodium Chloride 1,000 mls @ 100 mls/hr 12/16/21 18:15 12/25/21 11:28 Nacl 0.9% 1000 Ml IV 100 mls/hr DIRECT ALAN Administration Morphine Sulfate 2 mg 12/19/21 15:00 Morphine 2 Mg/1 Ml Inj IV Q4H PRN Pain, Moderate (4-6) Pantoprazole Sodium 40 mg 12/26/21 10:00 Pantoprazole 40 Mg Inj IV QDAY ALAN Quetiapine Fumarate 25 mg 12/25/21 03:39 Quetiapine 25 Mg Tab PO BID PRN Agitation Sodium Chloride 10 ml 12/16/21 22:00 12/25/21 11:28 Sodium Chloride 0.9% 10 Ml Flush Syringe IV 10 ml BID ALAN Administration Sodium Chloride 10 ml 12/16/21 18:03 Sodium Chloride 0.9% 10 Ml Flush Syringe IV PRN PRN LINE FLUSH Sodium Chloride 10 ml 12/19/21 15:00 Sodium Chloride 0.9% 10 Ml Flush Syringe IV 12/31/21 14:59 PRN NR Nutrition/Malnutrition Assess - Dietary Evaluation Nutrition/Malnutrition Findings: Nutrition Notes Start: 12/17/21 11:15 Freq: Status: Active Protocol: Document 12/20/21 18:19 GONZALO (Rec: 12/20/21 18:35 GONZALO [id number]) Nutrition Notes Initial or Follow up Brief Note Current Diagnosis Hypertension Other Pertinent Diagnosis s/p R-Hip Fracture, Lewy Body Dementia. Current Diet Mechanical Soft Diet (since B 12/20). Height 5 ft 4 in Weight 68 kg [place] Body Weight (kg) 54.54 BMI 25.7 Weight change and time frame No body weight change reported in 3 days. Weight Status Overweight Subjective/Other Information RD consult for routine F/U on Dietary Advancement. Diet changed from Reguler to Merchanical Soft Diet. Pt's PO intake of meals has been Good (75%), according to ADL notes. Pt is on Room Air, O2 saturation @ 95%, according to Physical Assessment History notes, Procedure on 12/19: R-Femur closed reduction insertion of intramedullary nail. Well tolerated, according to Operative report notes. Percent of energy/protein needs met: Prescribed Mechanical Soft Diet provides for energy/ protein needs (2,048 Kcal/97 g ) during LOS. Current % PO Good (75-100%) Is patient on ventilator? No Is Patient Ambulatory and/or Out of Bed No REE-([place]-St. Jeor-confined to bed) [phone] Calculation [facility] for [facility]ations [facility] Additional Notes Protein: 1-1.2 g/Kg ABW; 68-82 g/day. Fluids: 1 ml/Kcal, or as per MD. Nutrition Intervention Change Diet Order: Continue Mechanical Soft Diet, advance as tolerated. Follow-Up By: 12/27/21 Additional Comments Continue monitoring food tolerance, %PO intake of meals , and BM.
[2021-12-26] MEDS ORDERED: PANTOPRAZOLE 40 MG INJ IV SCH (10:00)
[2021-12-26 18:04] LABS: Hematocrit 23.5 % (30.3-42.9); Hemoglobin 8.5 gm/dl (10.1-14.3)
[2021-12-27] MEDS: SODIUM CHLORIDE 0.9% 1000 ML 1,000 ML IV SCH (03:30)
--- NOTE | 2021-12-27 08:12 | Discharge Summary ---
Providers - Providers Date of Admission: 12/16/21 18:03 Date of discharge: 12/27/21 Attending physician: SINAN LEON 12/16/21 14:41 Consult to Physician [CONS] Urgent Comment: Consulting Provider: KENTON MELGOZA Physician Instructions: Reason For Exam: right hip fracture 12/19/21 14:55 Consult to Case Management [CONS] Routine Services Needed at Discharge: Other Notified:: yes Additional Physician Instructions: NEED BLOOD CONSENT UNABLE TO REACH FAMILY. Physical Therapy Evaluation and Treat [CONS] Routine Comment: Reason For Exam: Eval and Treat Weight bearing status?: Full wt bearing Assistive devices?: Yes If so list: Walker 12/20/21 11:11 Physical Therapy Evaluation and Treat [CONS] Stat Comment: Eval and Treat Reason For Exam: Physical Therapy Primary care physician: FLOW TRADER Hospitalization Condition: Stable Disposition: 50 HOSPICE/HOME Exam - Constitutional Vitals: Temp Pulse Resp BP Pulse Ox 98.9 F 70 16 135/55 96 12/26/21 11:18 12/26/21 11:18 12/26/21 22:00 12/26/21 11:18 12/26/21 22:00 Plan Activity: advance as tolerated, fall precautions Diet: other (Mechanical soft food, advance as) Additional Instructions: Fall precautions. Aspiration precautions. If the patient has worsening symptoms contact MD or take her to the nearest emergency room. Advised to follow primary care physician in 1 week, follow-up with orthopedic surgeon in 2 weeks or as needed Follow up with: PAGE GORE MD [Primary Care Provider] - 7 Days KENTON MELGOZA MD [Staff Physician] - 14 Days Prescriptions: Naproxen [EC-Naproxen] 500 mg PO BID PRN #30 PRN Reason: Pain , Severe (7-10) Famotidine [Pepcid] 10 mg PO BID #60 tablet QUEtiapine [SEROquel] 25 mg PO BID PRN #60 tablet PRN Reason: Agitation
[2021-12-27] MEDS ORDERED: PANTOPRAZOLE 40 MG TAB PO SCH (10:00)
[2021-12-27 13:07] VITALS: BP 155/58
== END 2021-12-27 13:10 | disposition hospice, home (50) | DRG 481 ==
LOC: ED 13:33 → 3A 18:03
PROVIDERS: ADMIT Internal Medicine; ATTEND Internal Medicine
PROC: 0QS636Z Reposition Right Upper Femur with Intramedullary Internal Fixation Device, Percutaneous Approach (ICD-10-PCS; principal; 2021-12-19)
PROC: 30233N1 Transfusion of Nonautologous Red Blood Cells into Peripheral Vein, Percutaneous Approach (ICD-10-PCS; 2021-12-26)
DX: S72.141A Displaced intertrochanteric fracture of right femur, initial encounter for closed fracture (principal); D62 Acute posthemorrhagic anemia; F03.90 Unspecified dementia, unspecified severity, without behavioral disturbance, psychotic disturbance, mood disturbance, and anxiety; Z20.822 Contact with and (suspected) exposure to COVID-19; W18.39XA Other fall on same level, initial encounter; Y93.89 Activity, other specified; Y92.89 Other specified places as the place of occurrence of the external cause; Y99.8 Other external cause status; Z88.0 Allergy status to penicillin; Z88.2 Allergy status to sulfonamides; I10 Essential (primary) hypertension; Z90.710 Acquired absence of both cervix and uterus; Z90.49 Acquired absence of other specified parts of digestive tract
CPT/HCPCS: 36415; 80048; 80053; 82962; 85014; 85018; 85025; 85610; 85730; 86850; 86900; 86901; 86920; 93005; G0378; J3490; J7502; C1713; C1769; C9113; J1100; J1170; J1650; J1885; J2270; J2405; J2704; J7030; J7120; P9016; U0003